=== PATIENT | male | born 1960 | race African-American/Black ===

== ENCOUNTER 2019-01-04 13:20 | Inpatient (IN) ==
[2019-01-04 15:24] LABS: Basophils # 0.1 10*3/uL (0.0-0.2); Basophils % 0.6 % (0.0-0.8); Hemoglobin 12.8 GM/DL (14.0-18.0); Immature Granulocytes % 0.6 %; Immature Granulocytes Absolute 0.06 #; Lymphocytes # 1.8 10*3/uL (1.4-4.0); Lymphocytes % 18.4 % (21.2-54.2); Mean Corpuscular HGB Conc 31.2 GM/DL (32-36); Mean Platelet Volume 10.7 FL (9.6-12.0); Monocytes % 8.2 % (1.7-12.7); Neutrophils % 62.2 % (38.7-73.9); Platelet Count 200 T/CUMM (130-400); Red Cell Distribution Width 12.2 % (9.3-17.3); White Blood Count 9.5 T/CUMM (4-12)
[2019-01-04] MEDS ORDERED: DEXTROSE 10% 250 ML BAG IV PRN (15:36)
[2019-01-04] MEDS ORDERED: GLUCAGON 1 MG VIAL IM PRN (15:36)
[2019-01-04] MEDS ORDERED: SODIUM CHLORIDE 0.9% 1,000 ML IV PRN (15:38)
[2019-01-04 15:43] LABS: Alanine Aminotransferase 62 U/L (16-61); Albumin 3.2 G/DL (3.4-5.0); Alkaline Phosphatase 99 U/L (45-117); Aspartate Amino Transferase 29 U/L (0-37); Bilirubin,Total < 0.39 MG/DL (0.2-1.0); Blood Urea Nitrogen 17 MG/DL (7-18); Glucose 173 MG/DL (74-106); Osmolality,Calculated 282.5 MOS/KG (273-304); Total Protein 7.2 G/DL (6.4-8.3)
[2019-01-04 16:42] LABS: Barbiturates Screen,Urine Negative (Negative); Benzodiazepines Screen,Urine Negative (Negative); Cannabinoid Screen,Urine Negative (Negative); Opiate Screen,Urine Negative (Negative); Phencyclidine Screen,Urine Negative (Negative)
[2019-01-04] MEDS: INSULIN REGULAR 100 UNIT/ML SUBCUT SCH (23:37)
[2019-01-05 06:32] LABS: Basophils # 0.1 10*3/uL (0.0-0.2); Basophils % 0.5 % (0.0-0.8); Eosinophils # 1.1 10*3/uL (0.0-0.87); Eosinophils % 10.6 % (0.00-10.9); Hematocrit 39.7 VOL% (42.0-52.0); Immature Granulocytes % 0.5 %; Immature Granulocytes Absolute 0.05 #; Lymphocytes # 2.4 10*3/uL (1.4-4.0); Lymphocytes % 23.5 % (21.2-54.2); Mean Corpuscular HGB Conc 32.7 GM/DL (32-36); Mean Corpuscular Volume 97.5 FL (87-102); Mean Platelet Volume 11.3 FL (9.6-12.0); Monocytes % 8.1 % (1.7-12.7); Neutrophils % 56.8 % (38.7-73.9); Platelet Count 210 T/CUMM (130-400); Red Blood Count 4.07 MC/CUMM (3.8-5.5); Red Cell Distribution Width 12.2 % (9.3-17.3); White Blood Count 10.1 T/CUMM (4-12)
[2019-01-05] MEDS: ENOXAPARIN 40 MG/0.4 ML SYRINGE SUBCUT SCH (10:09)
[2019-01-05] MEDS: INSULIN REGULAR 100 UNIT/ML SUBCUT SCH ×4 (10:10→22:20)
[2019-01-05] MEDS: MONTELUKAST 10 MG TABLET PO SCH (21:35)
[2019-01-06] MEDS ORDERED: ONDANSETRON 4 MG/2 ML VIAL IV PRN (07:40)
[2019-01-06] MEDS: LISINOPRIL 5 MG TABLET PO SCH (08:56)
[2019-01-06] MEDS: ASPIRIN CHEW 81 MG TABLET PO SCH (08:56)
[2019-01-06] MEDS: TAMSULOSIN 0.4 MG CAPSULE PO SCH (08:57)
[2019-01-06] MEDS: LORATADINE 10 MG TABLET PO SCH (08:57)
[2019-01-06] MEDS: INSULIN REGULAR 100 UNIT/ML SUBCUT SCH ×4 (08:58→21:02)
[2019-01-06] MEDS: ENOXAPARIN 40 MG/0.4 ML SYRINGE SUBCUT SCH (08:58)
[2019-01-06] MEDS ORDERED: cloNIDine 0.3 MG/24 HR PATCH TRANSDERM SCH (09:30)
[2019-01-06] MEDS: fentaNYL 12 MCG/HR PATCH TRANSDERM SCH (10:17)
[2019-01-06] MEDS ORDERED: DEXTROSE 50% 25 GM/50 ML VIAL IV PRN (15:23)
[2019-01-06] MEDS: PANTOPRAZOLE 40 MG TABLET PO SCH (21:01)
[2019-01-06] MEDS: MONTELUKAST 10 MG TABLET PO SCH (21:01)
[2019-01-06] MEDS: INSULIN GLARGINE 100 UNIT/ML SUBCUT SCH (21:02)
[2019-01-07] MEDS: TAMSULOSIN 0.4 MG CAPSULE PO SCH (08:19)
[2019-01-07] MEDS: PANTOPRAZOLE 40 MG TABLET PO SCH (08:19)
[2019-01-07] MEDS: LORATADINE 10 MG TABLET PO SCH (08:19)
[2019-01-07] MEDS: ASPIRIN CHEW 81 MG TABLET PO SCH (08:20)
[2019-01-07] MEDS: LISINOPRIL 5 MG TABLET PO SCH (08:20)
[2019-01-07] MEDS: ENOXAPARIN 40 MG/0.4 ML SYRINGE SUBCUT SCH (08:22)
[2019-01-07] MEDS ORDERED: PROMETHAZINE 25 MG TABLET PO PRN (09:12)
[2019-01-07] MEDS: INSULIN REGULAR 100 UNIT/ML SUBCUT SCH ×4 (11:11→21:19)
[2019-01-07] MEDS: GABAPENTIN 300 MG CAPSULE PO SCH ×3 (11:29→21:19)
[2019-01-07] MEDS ORDERED: ALBUTEROL 2.5 MG/3 ML NEB RESP TX PRN (13:00)
[2019-01-07] MEDS: predniSONE 20 MG TABLET PO SCH ×2 (16:44→21:19)
[2019-01-07] MEDS: INSULIN GLARGINE 100 UNIT/ML SUBCUT SCH (21:19)
[2019-01-07] MEDS: MONTELUKAST 10 MG TABLET PO SCH (21:20)
[2019-01-08] MEDS: GABAPENTIN 300 MG CAPSULE PO SCH ×4 (02:38→22:20)
[2019-01-08 05:18] LABS: Basophils % 0.3 % (0.0-0.8); Eosinophils % 0.2 % (0.00-10.9); Hemoglobin 13.5 GM/DL (14.0-18.0); Immature Granulocytes % 0.6 %; Immature Granulocytes Absolute 0.06 #; Lymphocytes # 0.8 10*3/uL (1.4-4.0); Lymphocytes % 8.5 % (21.2-54.2); Mean Corpuscular HGB Conc 32.1 GM/DL (32-36); Mean Platelet Volume 10.8 FL (9.6-12.0); Monocytes % 3.2 % (1.7-12.7); Neutrophils % 87.2 % (38.7-73.9); Platelet Count 213 T/CUMM (130-400); Red Blood Count 4.33 MC/CUMM (3.8-5.5); Red Cell Distribution Width 11.5 % (9.3-17.3); White Blood Count 9.9 T/CUMM (4-12)
[2019-01-08 05:41] LABS: Calcium 8.7 MG/DL (8.5-10.1); Osmolality,Calculated 288.2 MOS/KG (273-304)
[2019-01-08] MEDS: INSULIN REGULAR 100 UNIT/ML SUBCUT SCH ×4 (09:11→22:19)
[2019-01-08] MEDS: LISINOPRIL 5 MG TABLET PO SCH (09:11)
[2019-01-08] MEDS: MELOXICAM 7.5 MG TABLET PO SCH (09:12)
[2019-01-08] MEDS: ASPIRIN CHEW 81 MG TABLET PO SCH (09:13)
[2019-01-08] MEDS: ENOXAPARIN 40 MG/0.4 ML SYRINGE SUBCUT SCH (09:14)
[2019-01-08] MEDS: TAMSULOSIN 0.4 MG CAPSULE PO SCH (09:14)
[2019-01-08] MEDS: predniSONE 20 MG TABLET PO SCH ×3 (09:14→22:20)
[2019-01-08] MEDS: PANTOPRAZOLE 40 MG TABLET PO SCH (09:14)
[2019-01-08] MEDS: LORATADINE 10 MG TABLET PO SCH (09:15)
[2019-01-08] MEDS: MOMETASONE 50 MCG NASAL SPRAY 17 GM BOTTLE BOTH NARES SCH (09:17)
[2019-01-08] MEDS ORDERED: FUROSEMIDE 40 MG/4 ML VIAL IV ONE (10:58)
[2019-01-08] MEDS ORDERED: INSULIN GLARGINE 100 UNIT/ML SUBCUT SCH (13:41)
[2019-01-08] MEDS: MONTELUKAST 10 MG TABLET PO SCH (22:20)
[2019-01-09] MEDS: GABAPENTIN 300 MG CAPSULE PO SCH ×4 (03:35→21:40)
[2019-01-09 05:29] LABS: Basophils % 0.2 % (0.0-0.8); Hematocrit 38.1 VOL% (42.0-52.0); Hemoglobin 12.2 GM/DL (14.0-18.0); Immature Granulocytes % 0.9 %; Immature Granulocytes Absolute 0.18 #; Lymphocytes % 5.2 % (21.2-54.2); Mean Corpuscular Volume 96.7 FL (87-102); Mean Platelet Volume 11.3 FL (9.6-12.0); Monocytes % 2.2 % (1.7-12.7); Neutrophils % 91.5 % (38.7-73.9); Platelet Count 222 T/CUMM (130-400); Red Blood Count 3.94 MC/CUMM (3.8-5.5); Red Cell Distribution Width 11.7 % (9.3-17.3)
[2019-01-09 05:59] LABS: Calcium 8.7 MG/DL (8.5-10.1); Osmolality,Calculated 296.4 MOS/KG (273-304)
[2019-01-09 06:40] LABS: Lymphocytes 7 % (20-55); Platelet Estimate Normal; Polychromasia Slight; Segmented Neutrophils 91 % (50-85); Total Cells Counted 100
[2019-01-09] MEDS ORDERED: CALCIUM GLUCONATE 1,000 MG in SODIUM CHLORIDE 0.9% 100 ML IV ONE (08:56)
[2019-01-09] MEDS ORDERED: INSULIN REGULAR 100 UNIT/ML IV ONE ×2 (08:56→13:52)
[2019-01-09] MEDS ORDERED: SODIUM BICARBONATE 50 MEQ/50 ML VIAL IV ONE (09:01)
[2019-01-09] MEDS: fentaNYL 12 MCG/HR PATCH TRANSDERM SCH (09:47)
[2019-01-09] MEDS: TAMSULOSIN 0.4 MG CAPSULE PO SCH (09:48)
[2019-01-09] MEDS: MELOXICAM 7.5 MG TABLET PO SCH (09:48)
[2019-01-09] MEDS: LORATADINE 10 MG TABLET PO SCH (09:48)
[2019-01-09] MEDS: predniSONE 20 MG TABLET PO SCH (09:48)
[2019-01-09] MEDS: LISINOPRIL 5 MG TABLET PO SCH (09:48)
[2019-01-09] MEDS: MOMETASONE 50 MCG NASAL SPRAY 17 GM BOTTLE BOTH NARES SCH (09:49)
[2019-01-09] MEDS: PANTOPRAZOLE 40 MG TABLET PO SCH (09:49)
[2019-01-09] MEDS: ASPIRIN CHEW 81 MG TABLET PO SCH (09:49)
[2019-01-09] MEDS: INSULIN REGULAR 100 UNIT/ML SUBCUT SCH ×4 (09:59→21:41)
[2019-01-09] MEDS: ENOXAPARIN 40 MG/0.4 ML SYRINGE SUBCUT SCH (10:00)
[2019-01-09 10:13] LABS: Apearance,Urine CLEAR (Clear); Bilirubin,Urine Negative (Negative); Blood, Urine Negative (Negative); Glucose,Urine (UA) >=500 mg/dL (Negative); Ketones,Urine Negative (Negative); Nitrite,Urine Negative (Negative); Protein,Urine Negative; Squamous Epithelial Cell,Urine Occasional /HPF (0-10); Urine Color Straw (Yellow); Urine Urobilinogen < 2.0 EU/DL (0.2-1.0); WBC,Urine <1 /HPF (0-6)
[2019-01-09 10:44] LABS: Barbiturates Screen,Urine Negative (Negative); Benzodiazepines Screen,Urine Negative (Negative); Cannabinoid Screen,Urine Negative (Negative); Opiate Screen,Urine Negative (Negative); Phencyclidine Screen,Urine Negative (Negative)
[2019-01-09] MEDS ORDERED: SODIUM POLYSTYRENE SULFATE 15 GM/60 ML BOTTLE PO STA (10:46)
[2019-01-09 14:37] LABS: Calcium 8.5 MG/DL (8.5-10.1)
[2019-01-09 14:40] LABS: Osmolality,Calculated 300.5 MOS/KG (273-304)
[2019-01-09] MEDS ORDERED: SODIUM CHLORIDE 0.9% 1,000 ML IV SCH (15:00)
[2019-01-09] MEDS ORDERED: INSULIN LISPRO 100 UNIT/ML SUBCUT SCH (17:00)
[2019-01-09] MEDS: INSULIN GLARGINE 100 UNIT/ML SUBCUT SCH (21:40)
[2019-01-09] MEDS: MONTELUKAST 10 MG TABLET PO SCH (21:40)
[2019-01-10] MEDS: INSULIN REGULAR 100 UNIT/ML SUBCUT SCH ×5 (00:22→22:07)
[2019-01-10] MEDS: GABAPENTIN 300 MG CAPSULE PO SCH ×4 (03:34→22:08)
[2019-01-10 05:01] LABS: Basophils # 0.1 10*3/uL (0.0-0.2); Basophils % 0.3 % (0.0-0.8); Eosinophils # 0.1 10*3/uL (0.0-0.87); Eosinophils % 0.6 % (0.00-10.9); Hematocrit 37.2 VOL% (42.0-52.0); Hemoglobin 12.3 GM/DL (14.0-18.0); Immature Granulocytes % 0.9 %; Lymphocytes # 2.5 10*3/uL (1.4-4.0); Lymphocytes % 11.1 % (21.2-54.2); Mean Corpuscular HGB Conc 33.1 GM/DL (32-36); Mean Corpuscular Volume 95.9 FL (87-102); Mean Platelet Volume 11.6 FL (9.6-12.0); Neutrophils % 79.1 % (38.7-73.9); Platelet Count 218 T/CUMM (130-400); Red Blood Count 3.88 MC/CUMM (3.8-5.5); Red Cell Distribution Width 11.9 % (9.3-17.3); White Blood Count 22.6 T/CUMM (4-12)
[2019-01-10 05:22] LABS: Band Neutrophils 1 % (0-10); Eosinophils 1 % (0-10); Hypochromasia 1+; Lymphocytes 6 % (20-55); Platelet Estimate Adequate; Segmented Neutrophils 84 % (50-85); Total Cells Counted 100
[2019-01-10 05:33] LABS: Calcium 8.3 MG/DL (8.5-10.1); Osmolality,Calculated 295.7 MOS/KG (273-304)
[2019-01-10 05:57] LABS: Barbiturates Screen,Urine Negative (Negative); Benzodiazepines Screen,Urine Negative (Negative); Cannabinoid Screen,Urine Negative (Negative); Opiate Screen,Urine Negative (Negative); Phencyclidine Screen,Urine Negative (Negative)
[2019-01-10] MEDS: TAMSULOSIN 0.4 MG CAPSULE PO SCH (10:00)
[2019-01-10] MEDS: LORATADINE 10 MG TABLET PO SCH (10:00)
[2019-01-10] MEDS: MOMETASONE 50 MCG NASAL SPRAY 17 GM BOTTLE BOTH NARES SCH (10:00)
[2019-01-10] MEDS: MELOXICAM 7.5 MG TABLET PO SCH (10:00)
[2019-01-10] MEDS: PANTOPRAZOLE 40 MG TABLET PO SCH (10:00)
[2019-01-10] MEDS: ASPIRIN CHEW 81 MG TABLET PO SCH (10:00)
[2019-01-10] MEDS: ENOXAPARIN 40 MG/0.4 ML SYRINGE SUBCUT SCH (10:05)
[2019-01-10] MEDS ORDERED: SODIUM CHLORIDE 0.9% 1,000 ML IV SCH (15:00)
[2019-01-10] MEDS: CHLORHEXIDINE 4% SOLN 118 ML BOTTLE TOP SCH ×4 (16:41→22:36)
[2019-01-10] MEDS: LEVOFLOXACIN 750 MG TABLET PO SCH (16:41)
[2019-01-10] MEDS: INSULIN GLARGINE 100 UNIT/ML SUBCUT SCH (22:06)
[2019-01-10] MEDS: MONTELUKAST 10 MG TABLET PO SCH (22:08)
[2019-01-10] MEDS: CHLORHEXIDINE 0.12% ORAL RINSE 60 ML BOTTLE SWISH/SPIT SCH ×2 (22:09→22:39)
[2019-01-11] MEDS: GABAPENTIN 300 MG CAPSULE PO SCH ×2 (04:21→10:56)
[2019-01-11] MEDS ORDERED: PAPAVERINE 60 MG/2 ML VIAL ONE (04:23)
[2019-01-11] MEDS ORDERED: TISSUE ADHESIVE 1 EACH APPLICATOR TOP ONE (04:23)
[2019-01-11] MEDS ORDERED: VANCOMYCIN 1,000 MG VIAL ONE (04:24)
[2019-01-11] MEDS ORDERED: DIAZEPAM 5 MG TABLET PO ONE (06:00)
[2019-01-11] MEDS ORDERED: FAMOTIDINE 20 MG TABLET PO ONE (06:00)
[2019-01-11] MEDS ORDERED: MIDAZOLAM 10 MG/2 ML VIAL ONE (06:25)
[2019-01-11] MEDS ORDERED: SUFentanil 250 MCG/5 ML AMP ONE (06:25)
[2019-01-11] MEDS ORDERED: CEFUROXIME INJ 1,500 MG in SYRINGE 1 EACH IV ONE (06:30)
[2019-01-11 07:37] LABS: ABG HCO3 26.3 MMOL/L (20-26); ABG Oxygen Saturation 99.2 % (95-100); ABG PCO2 44.7 MM HG (35-48); ABG PH 7.387 (7.35-7.45); ABG PO2 446.6 MM HG (80-95); ABG TCO2 27.6 MMOL/L (23-27); Glucose Heart Surgery 104 MG/DL (74-106); Hemoglobin Heart Surgery 11.2 G/DL (14.0-18.0); PCO2 Patient Temp Arterial 44.7 MMHG; PH Patient Temp Arterial 7.387; PO2 Patient Temp Arterial 446.6 MM HG; Patient Temperature 37 CELCIUS; Sodium Heart/CVR 137 MMOL/L (135-145)
[2019-01-11 08:58] LABS: Hematocrit Heart Surgery 24.7 PERCENT (42-52); Hemoglobin Heart Surgery 7.9 G/DL (14.0-18.0); PCO2 Patient Temp Venous 40.5 MM HG; PH Patient Temp Venous 7.433; PO2 Patient Temp Venous 36.8 MM HG; Potassium Heart/CVR 5.2 MMOL/L (3.5-5.1); VBG Base Excess 2.8 MEQ/L (0-4); VBG HCO3 26.7 MEQ/L (24-28); VBG Oxygen Saturation 78.3 %; VBG PCO2 44.6 MMHG (41-51); VBG PH 7.403; VBG PO2 42.2 MMHG (17-40)
[2019-01-11 09:28] LABS: Apearance,Urine CLEAR (Clear); Bacteria,Urine Occasional /HPF (Few); Bilirubin,Urine Negative (Negative); Blood, Urine Negative (Negative); Glucose,Urine (UA) Negative (Negative); Ketones,Urine Negative (Negative); Mucus,Urine Occasional /LPF (Occasional); Nitrite,Urine Negative (Negative); Protein,Urine Negative; RBC,Urine 1 /HPF (0-4); Squamous Epithelial Cell,Urine Occasional /HPF (0-10); Urine Color Yellow (Yellow); Urine Specific Gravity 1.017 (1.001-1.035); Urine Urobilinogen < 2.0 EU/DL (0.2-1.0); WBC,Urine 1 /HPF (0-6)
[2019-01-11] MEDS ORDERED: SODIUM BICARBONATE 50 MEQ/50 ML VIAL IV ONE (09:32)
[2019-01-11] MEDS ORDERED: PROTAMINE SULFATE 250 MG/25 ML VIAL IV ONE (09:32)
[2019-01-11] MEDS ORDERED: HEPARIN 10,000 UNIT/10 ML VIAL ONE (09:32)
[2019-01-11] MEDS ORDERED: FUROSEMIDE 20 MG/2 ML VIAL ONE (09:32)
[2019-01-11] MEDS ORDERED: DEXTROSE 5% KCL 20 MEQ 20 MEQ/1,000 ML BAG IV ONE (09:32)
[2019-01-11] MEDS ORDERED: methylPREDNISolone SOD SUC 1,000 MG/8 ML VIAL ONE (09:32)
[2019-01-11] MEDS ORDERED: ALBUMIN 25% 25 GM/100 ML VIAL IV ONE (09:32)
[2019-01-11] MEDS ORDERED: MAGNESIUM SULFATE 5 GM/10 ML VIAL IV ONE (09:32)
[2019-01-11] MEDS ORDERED: MANNITOL 100 GM/500 ML BAG IV ONE (09:32)
[2019-01-11] MEDS ORDERED: PROTAMINE SULFATE 50 MG/5 ML VIAL IV ONE (09:33)
[2019-01-11 09:44] LABS: ABG Base Excess 2.2 MMOL/L (-2.5-2.5); ABG HCO3 26.4 MMOL/L (20-26); ABG PCO2 39.9 MM HG (35-48); ABG PH 7.432 (7.35-7.45); ABG TCO2 24.5 MMOL/L (23-27); Glucose Heart Surgery 195 MG/DL (74-106); Hematocrit Heart Surgery 27.6 PERCENT (42-52); Hemoglobin Heart Surgery 8.9 G/DL (14.0-18.0); Ionized Calcium Arterial 1.24 MMOL/L (1.21-1.46); PCO2 Patient Temp Arterial 39.9 MMHG; PH Patient Temp Arterial 7.432; Patient Temperature 37 CELCIUS; Potassium Heart/CVR 4.6 MMOL/L (3.5-5.1); Sodium Heart/CVR 132 MMOL/L (135-145)
[2019-01-11] MEDS ORDERED: CEFUROXIME INJ 1,500 MG in SODIUM CHLORIDE 0.9% 100 ML IV ONE (09:56)
[2019-01-11] MEDS ORDERED: PHENYLEPHRINE DRIP 0 MG/0 ML PREMIX IV ONE (10:18)
[2019-01-11] MEDS ORDERED: ALBUMIN 5% 12.5 GM/250 ML VIAL IV ONE (10:18)
[2019-01-11] MEDS: SODIUM CHLORIDE 0.45% 1,000 ML IV SCH ×2 (10:20)
[2019-01-11] MEDS ORDERED: THROMBIN TOPICAL (RECOMBINANT) 5,000 UNIT VIAL TOP ONE (10:25)
[2019-01-11] MEDS ORDERED: VECURONIUM 10 MG VIAL IV ONE (10:45)
[2019-01-11] MEDS ORDERED: PHENYLEPHRINE DRIP 20 MG/250 ML PREMIX IV ONE (10:45)
[2019-01-11] MEDS ORDERED: HEPARIN/NACL 0.9% 2 UNITS/ML 500 ML IV ONE (10:45)
[2019-01-11] MEDS ORDERED: MINERAL OIL/PETROLATUM OPH OINT 3.5 GM TUBE ONE (10:45)
[2019-01-11] MEDS ORDERED: CALCIUM CHLORIDE 1,000 MG/10 ML VIAL IV ONE (10:45)
[2019-01-11] MEDS ORDERED: SEVOFLURANE 1 UNIT/15 MINUTE INH ONE (10:45)
[2019-01-11] MEDS ORDERED: LACTATED RINGERS 1,000 ML IV ONE (10:46)
[2019-01-11] MEDS ORDERED: SODIUM CHLORIDE 0.9% 1,000 ML IV ONE (10:46)
[2019-01-11] MEDS ORDERED: NITROGLYCERIN DRIP 50 MG/250 ML BOTTLE IV ONE (10:46)
[2019-01-11] MEDS ORDERED: SODIUM CHLORIDE 0.9% 250 ML IV ONE (10:46)
[2019-01-11] MEDS ORDERED: AMINOCAPROIC ACID 5,000 MG/20 ML VIAL ONE (10:46)
[2019-01-11] MEDS ORDERED: SODIUM CHLORIDE 0.9% 100 ML IV ONE (10:46)
[2019-01-11] MEDS ORDERED: ETOMIDATE 40 MG/20 ML VIAL IV ONE (10:46)
[2019-01-11] MEDS ORDERED: SODIUM CHLORIDE 0.9% 250 ML IV PRN (10:51)
[2019-01-11] MEDS ORDERED: MAGNESIUM SULF RIDER 4 GM in PREMIX 1 EACH IV PRN (10:51)
[2019-01-11] MEDS ORDERED: INSULIN REGULAR 100 UNIT/ML IV PRN (10:51)
[2019-01-11] MEDS ORDERED: MIDAZOLAM 2 MG/2 ML VIAL IV PRN (10:51)
[2019-01-11] MEDS ORDERED: CHLORHEXIDINE 4% SOLN 118 ML BOTTLE TOP PRN (10:51)
[2019-01-11] MEDS ORDERED: CALCIUM CHLORIDE 1,000 MG/10 ML SYRINGE IV PRN (10:51)
[2019-01-11] MEDS ORDERED: POTASSIUM CHLORIDE RIDER 20 MEQ in PREMIX 1 EACH IV PRN (10:51)
[2019-01-11] MEDS ORDERED: POTASSIUM CHLORIDE RIDER 10 MEQ in PREMIX 1 EACH IV PRN (10:51)
[2019-01-11] MEDS ORDERED: ONDANSETRON 4 MG/2 ML VIAL IV PRN (10:51)
[2019-01-11] MEDS ORDERED: DEXTROSE 50% 25 GM/50 ML VIAL IV PRN ×2 (10:51)
[2019-01-11] MEDS ORDERED: ACETAMINOPHEN 650 MG SUPP RECTAL PRN (10:51)
[2019-01-11] MEDS ORDERED: MAGNESIUM SULF RIDER 2 GM in PREMIX 1 EACH IV PRN (10:51)
[2019-01-11] MEDS: CHLORHEXIDINE 0.12% ORAL RINSE 60 ML BOTTLE SWISH/SPIT SCH ×3 (10:56→22:11)
[2019-01-11] MEDS: PANTOPRAZOLE 40 MG TABLET PO SCH (10:56)
[2019-01-11] MEDS: MELOXICAM 7.5 MG TABLET PO SCH (10:57)
[2019-01-11] MEDS: LEVOFLOXACIN 750 MG TABLET PO SCH (10:57)
[2019-01-11] MEDS: MOMETASONE 50 MCG NASAL SPRAY 17 GM BOTTLE BOTH NARES SCH (10:57)
[2019-01-11] MEDS: ENOXAPARIN 40 MG/0.4 ML SYRINGE SUBCUT SCH (10:57)
[2019-01-11] MEDS: ASPIRIN CHEW 81 MG TABLET PO SCH (10:58)
[2019-01-11] MEDS: SODIUM CHLORIDE 0.9% 1,000 ML IV SCH (10:58)
[2019-01-11] MEDS: INSULIN REGULAR 100 UNIT/ML SUBCUT SCH (10:58)
[2019-01-11] MEDS: TAMSULOSIN 0.4 MG CAPSULE PO SCH (10:58)
[2019-01-11] MEDS: LORATADINE 10 MG TABLET PO SCH (10:58)
[2019-01-11] MEDS: CHLORHEXIDINE 4% SOLN 118 ML BOTTLE TOP SCH ×2 (10:59)
[2019-01-11] MEDS ORDERED: INSULIN REGULAR DRIP 100 ML IV PRN (11:03)
[2019-01-11 11:21] LABS: ABG Base Excess 1.5 MMOL/L (-2.5-2.5); ABG HCO3 25.8 MMOL/L (20-26); ABG Oxygen Saturation 96.3 % (95-100); ABG PCO2 37.3 MM HG (35-48); ABG PH 7.442 (7.35-7.45); ABG PO2 77.6 MM HG (80-95); Glucose Heart Surgery 201 MG/DL (74-106); Hematocrit Heart Surgery 32.3 PERCENT (42-52); Hemoglobin Heart Surgery 10.5 G/DL (14.0-18.0); Potassium Heart/CVR 4.7 MMOL/L (3.5-5.1)
[2019-01-11 11:32] LABS: PT Patient Result 11.3 SECS
[2019-01-11 11:36] LABS: Blood Urea Nitrogen 39 MG/DL (7-18); Calcium 8.6 MG/DL (8.5-10.1); Glucose 187 MG/DL (74-106); Osmolality,Calculated 288.7 MOS/KG (273-304)
[2019-01-11 11:54] LABS: Hemoglobin 10.2 GM/DL (14.0-18.0); Mean Corpuscular HGB Conc 32.9 GM/DL (32-36); Mean Platelet Volume 10.8 FL (9.6-12.0); Platelet Count 200 T/CUMM (130-400); Red Blood Count 3.23 MC/CUMM (3.8-5.5); Red Cell Distribution Width 11.9 % (9.3-17.3); White Blood Count 13.8 T/CUMM (4-12)
[2019-01-11 11:55] LABS: Basophils % 0.4 % (0.0-0.8); Lymphocytes % 13.6 % (21.2-54.2); Monocytes % 6.9 % (1.7-12.7); Neutrophils % 76.1 % (38.7-73.9)
[2019-01-11] MEDS: SODIUM CHLORIDE 0.9% 1,000 ML IV PRN ×2 (12:00→16:27)
[2019-01-11 12:27] LABS: Partial Thromboplastin Time 85.4 SECS (0-40)
[2019-01-11] MEDS: ALBUMIN 5% 12.5 GM in PREMIX 1 EACH IV PRN ×2 (14:38→15:47)
[2019-01-11] MEDS ORDERED: PHENYLEPHRINE DRIP 40 MG/250 ML PREMIX IV PRN (18:15)
[2019-01-11] MEDS ORDERED: PHENYLEPHRINE DRIP 40 MG/250 ML PREMIX IV ONE (18:24)
[2019-01-11] MEDS: CEFUROXIME INJ 1,500 MG in SYRINGE 1 EACH IV SCH (18:45)
[2019-01-11 19:49] LABS: ABG Base Excess -1.6 MMOL/L (-2.5-2.5); ABG HCO3 23.1 MMOL/L (20-26); ABG Oxygen Saturation 98.7 % (95-100); ABG PCO2 44.1 MM HG (35-48); ABG PH 7.346 (7.35-7.45); ABG TCO2 22.2 MMOL/L (23-27); Glucose Heart Surgery 166 MG/DL (74-106); Hematocrit Heart Surgery 28.9 PERCENT (42-52); Hemoglobin Heart Surgery 9.3 G/DL (14.0-18.0); Potassium Heart/CVR 4.3 MMOL/L (3.5-5.1)
[2019-01-12] MEDS: MORPHINE 4 MG/1 ML VIAL IV PRN ×4 (00:06→19:36)
[2019-01-12] MEDS: SODIUM CHLORIDE 0.45% 1,000 ML IV SCH ×3 (00:10→10:01)
[2019-01-12] MEDS: MORPHINE 10 MG/1 ML VIAL IV PRN (01:40)
[2019-01-12 04:09] LABS: Basophils % 0.2 % (0.0-0.8); Hematocrit 28.5 VOL% (42.0-52.0); Hemoglobin 9.2 GM/DL (14.0-18.0); Immature Granulocytes % 0.9 %; Immature Granulocytes Absolute 0.19 #; Lymphocytes # 0.9 10*3/uL (1.4-4.0); Lymphocytes % 4.4 % (21.2-54.2); Mean Corpuscular HGB Conc 32.3 GM/DL (32-36); Mean Corpuscular Volume 96.3 FL (87-102); Mean Platelet Volume 10.9 FL (9.6-12.0); Monocytes % 3.9 % (1.7-12.7); Neutrophils % 90.6 % (38.7-73.9); Platelet Count 190 T/CUMM (130-400); Red Blood Count 2.96 MC/CUMM (3.8-5.5); White Blood Count 21.1 T/CUMM (4-12)
[2019-01-12 04:23] LABS: Osmolality,Calculated 289.4 MOS/KG (273-304)
[2019-01-12 04:32] LABS: Band Neutrophils 3 % (0-10); Lymphocytes 7 % (20-55); Platelet Estimate Adequate; Segmented Neutrophils 87 % (50-85); Total Cells Counted 100
[2019-01-12 05:06] LABS: ABG Base Excess -2.9 MMOL/L (-2.5-2.5); ABG HCO3 21.4 MMOL/L (20-26); ABG Oxygen Saturation 97.8 % (95-100); ABG PCO2 35.5 MM HG (35-48); ABG PH 7.399 (7.35-7.45); ABG PO2 123.4 MM HG (80-95); ABG TCO2 22.5 MMOL/L (23-27); Glucose Heart Surgery 129 MG/DL (74-106); Hemoglobin Heart Surgery 10.2 G/DL (14.0-18.0)
[2019-01-12] MEDS: CEFUROXIME INJ 1,500 MG in SYRINGE 1 EACH IV SCH ×2 (07:00→22:16)
[2019-01-12] MEDS: INSULIN REGULAR 100 UNIT/ML SUBCUT SCH ×4 (08:06→22:22)
[2019-01-12] MEDS: ASPIRIN EC 325 MG TABLET PO SCH (08:22)
[2019-01-12] MEDS: FUROSEMIDE 40 MG TABLET PO SCH (08:22)
[2019-01-12] MEDS: CHLORHEXIDINE 0.12% ORAL RINSE 60 ML BOTTLE SWISH/SPIT SCH ×2 (08:23→22:22)
[2019-01-12] MEDS: PANTOPRAZOLE 40 MG VIAL IV SCH (08:23)
[2019-01-12] MEDS ORDERED: FUROSEMIDE 40 MG/4 ML VIAL IV ONE (09:55)
[2019-01-12] MEDS: CLOPIDOGREL 75 MG TABLET PO SCH (10:53)
[2019-01-12] MEDS: CARVEDILOL 3.125 MG TABLET PO SCH ×2 (10:53→22:14)
[2019-01-12] MEDS ORDERED: diphenhydrAMINE CAP 50 MG CAPSULE PO PRN (21:45)
[2019-01-12] MEDS: ATORVASTATIN 40 MG TABLET PO SCH (22:13)
[2019-01-12] MEDS: INSULIN GLARGINE 100 UNIT/ML SUBCUT SCH (22:15)
[2019-01-13] MEDS: MORPHINE 10 MG/1 ML VIAL IV PRN (00:47)
[2019-01-13] MEDS: INSULIN REGULAR 100 UNIT/ML SUBCUT SCH ×5 (01:52→21:15)
[2019-01-13 06:22] LABS: Basophils % 0.1 % (0.0-0.8); Hematocrit 29.4 VOL% (42.0-52.0); Hemoglobin 9.6 GM/DL (14.0-18.0); Immature Granulocytes % 0.7 %; Immature Granulocytes Absolute 0.16 #; Lymphocytes # 1.3 10*3/uL (1.4-4.0); Lymphocytes % 5.4 % (21.2-54.2); Mean Corpuscular HGB Conc 32.7 GM/DL (32-36); Mean Corpuscular Volume 98.3 FL (87-102); Mean Platelet Volume 11.8 FL (9.6-12.0); Monocytes % 8.2 % (1.7-12.7); Neutrophils % 85.6 % (38.7-73.9); Platelet Count 202 T/CUMM (130-400); Red Blood Count 2.99 MC/CUMM (3.8-5.5); Red Cell Distribution Width 12.5 % (9.3-17.3); White Blood Count 23.7 T/CUMM (4-12)
[2019-01-13 06:38] LABS: Calcium 8.1 MG/DL (8.5-10.1); Osmolality,Calculated 289.8 MOS/KG (273-304)
[2019-01-13 06:44] LABS: Band Neutrophils 1 % (0-10); Hypochromasia 1+; Lymphocytes 6 % (20-55); Platelet Estimate Adequate; Segmented Neutrophils 83 % (50-85); Total Cells Counted 100
[2019-01-13] MEDS ORDERED: ALBUTEROL/IPRATROPIUM 3 ML NEB RESP TX PRN (07:23)
[2019-01-13] MEDS ORDERED: FUROSEMIDE 40 MG/4 ML VIAL IV ONE (07:34)
[2019-01-13] MEDS: MORPHINE 4 MG/1 ML VIAL IV PRN (07:55)
[2019-01-13] MEDS ORDERED: CLOPIDOGREL 75 MG TABLET PO SCH (09:00)
[2019-01-13] MEDS: CARVEDILOL 3.125 MG TABLET PO SCH ×2 (10:06→21:14)
[2019-01-13] MEDS: FUROSEMIDE 40 MG TABLET PO SCH (10:06)
[2019-01-13] MEDS: ASPIRIN EC 325 MG TABLET PO SCH (10:06)
[2019-01-13] MEDS: CLOPIDOGREL 75 MG TABLET PO SCH (10:06)
[2019-01-13] MEDS: CHLORHEXIDINE 0.12% ORAL RINSE 60 ML BOTTLE SWISH/SPIT SCH ×2 (10:06→21:20)
[2019-01-13] MEDS: PANTOPRAZOLE 40 MG VIAL IV SCH (10:07)
[2019-01-13] MEDS: ATORVASTATIN 40 MG TABLET PO SCH (21:14)
[2019-01-13] MEDS: INSULIN GLARGINE 100 UNIT/ML SUBCUT SCH (21:14)
[2019-01-14] MEDS: INSULIN REGULAR 100 UNIT/ML SUBCUT SCH ×6 (00:10→20:45)
[2019-01-14] MEDS: MORPHINE 10 MG/1 ML VIAL IV PRN (00:53)
[2019-01-14 04:47] LABS: Basophils % 0.1 % (0.0-0.8); Eosinophils % 0.1 % (0.00-10.9); Hematocrit 28.3 VOL% (42.0-52.0); Hemoglobin 9.3 GM/DL (14.0-18.0); Immature Granulocytes % 2.1 %; Immature Granulocytes Absolute 0.56 #; Lymphocytes # 1.7 10*3/uL (1.4-4.0); Lymphocytes % 6.6 % (21.2-54.2); Mean Corpuscular HGB Conc 32.9 GM/DL (32-36); Mean Corpuscular Volume 96.6 FL (87-102); Mean Platelet Volume 11.6 FL (9.6-12.0); Monocytes % 9.1 % (1.7-12.7); Platelet Count 208 T/CUMM (130-400); Red Blood Count 2.93 MC/CUMM (3.8-5.5); Red Cell Distribution Width 12.1 % (9.3-17.3); White Blood Count 26.5 T/CUMM (4-12)
[2019-01-14 04:58] LABS: Calcium 8.2 MG/DL (8.5-10.1); Osmolality,Calculated 286.8 MOS/KG (273-304)
[2019-01-14 05:21] LABS: Eosinophils 1 % (0-10); Hypochromasia 1+; Lymphocytes 8 % (20-55); Platelet Estimate Adequate; Segmented Neutrophils 84 % (50-85); Total Cells Counted 100
[2019-01-14] MEDS: MORPHINE 4 MG/1 ML VIAL IV PRN ×2 (06:40→19:36)
[2019-01-14] MEDS ORDERED: FUROSEMIDE 40 MG/4 ML VIAL IV ONE (09:47)
[2019-01-14] MEDS: PANTOPRAZOLE 40 MG VIAL IV SCH (09:47)
[2019-01-14] MEDS: CLOPIDOGREL 75 MG TABLET PO SCH (09:48)
[2019-01-14] MEDS: CARVEDILOL 3.125 MG TABLET PO SCH ×2 (09:48→20:45)
[2019-01-14] MEDS: CHLORHEXIDINE 0.12% ORAL RINSE 60 ML BOTTLE SWISH/SPIT SCH ×2 (09:48→20:44)
[2019-01-14] MEDS: ASPIRIN EC 325 MG TABLET PO SCH (09:48)
[2019-01-14] MEDS: FUROSEMIDE 40 MG TABLET PO SCH (09:48)
[2019-01-14] MEDS: MEROPENEM 500 MG in SODIUM CHLORIDE 0.9% 100 ML IV SCH ×2 (11:09→22:08)
[2019-01-14] MEDS: ALBUTEROL/IPRATROPIUM 3 ML NEB RESP TX SCH ×2 (14:15→19:18)
[2019-01-14] MEDS: oxyCODONE/ACETAMINOPHEN 5-325 MG TABLET PO PRN (15:12)
[2019-01-14] MEDS: ATORVASTATIN 40 MG TABLET PO SCH (20:44)
[2019-01-14] MEDS: INSULIN GLARGINE 100 UNIT/ML SUBCUT SCH (20:45)
[2019-01-14 21:45] LABS: Apearance,Urine CLEAR (Clear); Bacteria,Urine Occasional /HPF (Few); Bilirubin,Urine Negative (Negative); Blood, Urine Small mg/dL (Negative); Glucose,Urine (UA) >=500 mg/dL (Negative); Hyaline Casts,Urine 1 /LPF (0-3); Ketones,Urine Negative (Negative); Mucus,Urine Occasional /LPF (Occasional); Nitrite,Urine Negative (Negative); Protein,Urine Negative; RBC,Urine 4 /HPF (0-4); Urine Color Yellow (Yellow); Urine Specific Gravity 1.013 (1.001-1.035); Urine Urobilinogen < 2.0 EU/DL (0.2-1.0); WBC,Urine 1 /HPF (0-6)
[2019-01-15] MEDS: INSULIN REGULAR 100 UNIT/ML SUBCUT SCH ×6 (00:02→21:27)
[2019-01-15] MEDS: oxyCODONE/ACETAMINOPHEN 5-325 MG TABLET PO PRN ×4 (00:07→19:48)
[2019-01-15] MEDS: ALBUTEROL/IPRATROPIUM 3 ML NEB RESP TX SCH ×4 (01:52→19:45)
[2019-01-15 05:09] LABS: Basophils # 0.1 10*3/uL (0.0-0.2); Basophils % 0.2 % (0.0-0.8); Eosinophils # 0.3 10*3/uL (0.0-0.87); Eosinophils % 1.4 % (0.00-10.9); Hematocrit 27.4 VOL% (42.0-52.0); Immature Granulocytes % 3.2 %; Immature Granulocytes Absolute 0.67 #; Lymphocytes # 2.3 10*3/uL (1.4-4.0); Lymphocytes % 11.2 % (21.2-54.2); Mean Corpuscular HGB Conc 32.8 GM/DL (32-36); Mean Corpuscular Volume 97.5 FL (87-102); Mean Platelet Volume 11.3 FL (9.6-12.0); Monocytes % 8.4 % (1.7-12.7); Neutrophils % 75.6 % (38.7-73.9); Platelet Count 196 T/CUMM (130-400); Red Blood Count 2.81 MC/CUMM (3.8-5.5); White Blood Count 20.9 T/CUMM (4-12)
[2019-01-15 05:26] LABS: Calcium 7.8 MG/DL (8.5-10.1)
[2019-01-15 05:29] LABS: Eosinophils 2 % (0-10); Lymphocytes 15 % (20-55); Platelet Estimate Adequate; Polychromasia Slight; Segmented Neutrophils 77 % (50-85); Total Cells Counted 100
[2019-01-15] MEDS: PANTOPRAZOLE 40 MG VIAL IV SCH (09:40)
[2019-01-15] MEDS: CHLORHEXIDINE 0.12% ORAL RINSE 60 ML BOTTLE SWISH/SPIT SCH ×2 (09:41→21:27)
[2019-01-15] MEDS: CARVEDILOL 3.125 MG TABLET PO SCH ×2 (09:41→21:27)
[2019-01-15] MEDS: FUROSEMIDE 40 MG TABLET PO SCH (09:41)
[2019-01-15] MEDS: CLOPIDOGREL 75 MG TABLET PO SCH (09:41)
[2019-01-15] MEDS: ASPIRIN EC 325 MG TABLET PO SCH (09:41)
[2019-01-15] MEDS: MEROPENEM 500 MG in SODIUM CHLORIDE 0.9% 100 ML IV SCH ×2 (09:41→21:28)
[2019-01-15] MEDS: FUROSEMIDE 40 MG/4 ML VIAL IV SCH (13:25)
[2019-01-15] MEDS: INSULIN GLARGINE 100 UNIT/ML SUBCUT SCH (21:26)
[2019-01-15] MEDS: GABAPENTIN 300 MG CAPSULE PO SCH (21:27)
[2019-01-15] MEDS: ATORVASTATIN 40 MG TABLET PO SCH (21:27)
[2019-01-16] MEDS: INSULIN REGULAR 100 UNIT/ML SUBCUT SCH ×6 (00:10→20:39)
[2019-01-16] MEDS: ALBUTEROL/IPRATROPIUM 3 ML NEB RESP TX SCH ×4 (01:36→19:20)
[2019-01-16 04:35] LABS: Basophils % 0.2 % (0.0-0.8); Eosinophils # 0.5 10*3/uL (0.0-0.87); Eosinophils % 2.7 % (0.00-10.9); Hematocrit 24.9 VOL% (42.0-52.0); Hemoglobin 8.3 GM/DL (14.0-18.0); Immature Granulocytes % 2.1 %; Immature Granulocytes Absolute 0.37 #; Lymphocytes # 1.9 10*3/uL (1.4-4.0); Lymphocytes % 10.7 % (21.2-54.2); Mean Corpuscular HGB Conc 33.3 GM/DL (32-36); Mean Corpuscular Volume 96.5 FL (87-102); Mean Platelet Volume 11.2 FL (9.6-12.0); Monocytes % 9.9 % (1.7-12.7); Neutrophils % 74.4 % (38.7-73.9); Platelet Count 210 T/CUMM (130-400); Red Blood Count 2.58 MC/CUMM (3.8-5.5); Red Cell Distribution Width 12.1 % (9.3-17.3); White Blood Count 17.9 T/CUMM (4-12)
[2019-01-16 04:51] LABS: Calcium 7.9 MG/DL (8.5-10.1)
[2019-01-16] MEDS: oxyCODONE/ACETAMINOPHEN 5-325 MG TABLET PO PRN ×2 (05:46→16:10)
[2019-01-16] MEDS: CHLORHEXIDINE 0.12% ORAL RINSE 60 ML BOTTLE SWISH/SPIT SCH ×2 (09:18→21:50)
[2019-01-16] MEDS: FUROSEMIDE 40 MG/4 ML VIAL IV SCH ×2 (09:18→21:51)
[2019-01-16] MEDS: MEROPENEM 500 MG in SODIUM CHLORIDE 0.9% 100 ML IV SCH ×2 (09:19→22:36)
[2019-01-16] MEDS: CLOPIDOGREL 75 MG TABLET PO SCH (09:19)
[2019-01-16] MEDS: FUROSEMIDE 40 MG TABLET PO SCH (09:19)
[2019-01-16] MEDS: PANTOPRAZOLE 40 MG VIAL IV SCH (09:19)
[2019-01-16] MEDS: CARVEDILOL 3.125 MG TABLET PO SCH ×2 (09:19→20:38)
[2019-01-16] MEDS: ASPIRIN EC 325 MG TABLET PO SCH (09:19)
[2019-01-16] MEDS ORDERED: guaiFENesin 200 MG/10 ML UDCUP PO PRN (11:49)
[2019-01-16] MEDS ORDERED: MAGNESIUM HYDROXIDE SUSP 30 ML UDCUP PO PRN (11:49)
[2019-01-16] MEDS: ATORVASTATIN 40 MG TABLET PO SCH (20:37)
[2019-01-16] MEDS: INSULIN GLARGINE 100 UNIT/ML SUBCUT SCH (20:38)
[2019-01-16] MEDS: GABAPENTIN 300 MG CAPSULE PO SCH (20:38)
[2019-01-16] MEDS: MORPHINE 4 MG/1 ML VIAL IV PRN (21:50)
[2019-01-17] MEDS: ALBUTEROL/IPRATROPIUM 3 ML NEB RESP TX SCH ×4 (00:05→19:10)
[2019-01-17] MEDS: INSULIN REGULAR 100 UNIT/ML SUBCUT SCH ×7 (00:18→23:43)
[2019-01-17] MEDS: MORPHINE 4 MG/1 ML VIAL IV PRN ×2 (02:44→08:50)
[2019-01-17 05:09] LABS: Basophils # 0.1 10*3/uL (0.0-0.2); Basophils % 0.3 % (0.0-0.8); Eosinophils # 0.6 10*3/uL (0.0-0.87); Eosinophils % 2.9 % (0.00-10.9); Hemoglobin 8.4 GM/DL (14.0-18.0); Immature Granulocytes % 1.8 %; Immature Granulocytes Absolute 0.33 #; Lymphocytes # 2.3 10*3/uL (1.4-4.0); Mean Corpuscular HGB Conc 32.3 GM/DL (32-36); Mean Corpuscular Volume 96.3 FL (87-102); Mean Platelet Volume 11.3 FL (9.6-12.0); Platelet Count 236 T/CUMM (130-400); White Blood Count 18.9 T/CUMM (4-12)
[2019-01-17 05:37] LABS: Osmolality,Calculated 283.7 MOS/KG (273-304)
[2019-01-17] MEDS: CARVEDILOL 3.125 MG TABLET PO SCH ×2 (08:49→23:23)
[2019-01-17] MEDS: FUROSEMIDE 40 MG/4 ML VIAL IV SCH ×2 (08:49→23:23)
[2019-01-17] MEDS: PANTOPRAZOLE 40 MG VIAL IV SCH (08:49)
[2019-01-17] MEDS: ASPIRIN EC 325 MG TABLET PO SCH (08:49)
[2019-01-17] MEDS: CLOPIDOGREL 75 MG TABLET PO SCH (08:49)
[2019-01-17] MEDS: CHLORHEXIDINE 0.12% ORAL RINSE 60 ML BOTTLE SWISH/SPIT SCH ×2 (08:50→23:24)
[2019-01-17] MEDS: MEROPENEM 500 MG in SODIUM CHLORIDE 0.9% 100 ML IV SCH ×2 (11:06→23:23)
[2019-01-17] MEDS: GABAPENTIN 300 MG CAPSULE PO SCH (23:22)
[2019-01-17] MEDS: ATORVASTATIN 40 MG TABLET PO SCH (23:23)
[2019-01-17] MEDS: INSULIN GLARGINE 100 UNIT/ML SUBCUT SCH (23:43)
[2019-01-18] MEDS: ALBUTEROL/IPRATROPIUM 3 ML NEB RESP TX SCH ×4 (00:19→19:40)
[2019-01-18] MEDS: INSULIN REGULAR 100 UNIT/ML SUBCUT SCH ×5 (05:59→22:18)
[2019-01-18 06:13] LABS: Basophils # 0.1 10*3/uL (0.0-0.2); Basophils % 0.3 % (0.0-0.8); Eosinophils # 0.7 10*3/uL (0.0-0.87); Eosinophils % 3.3 % (0.00-10.9); Hematocrit 27.1 VOL% (42.0-52.0); Hemoglobin 8.9 GM/DL (14.0-18.0); Immature Granulocytes % 1.3 %; Immature Granulocytes Absolute 0.27 #; Lymphocytes # 2.5 10*3/uL (1.4-4.0); Lymphocytes % 11.9 % (21.2-54.2); Mean Corpuscular HGB Conc 32.8 GM/DL (32-36); Mean Corpuscular Volume 96.4 FL (87-102); Mean Platelet Volume 11.3 FL (9.6-12.0); Monocytes % 7.3 % (1.7-12.7); Neutrophils % 75.9 % (38.7-73.9); Platelet Count 262 T/CUMM (130-400); Red Blood Count 2.81 MC/CUMM (3.8-5.5); White Blood Count 20.7 T/CUMM (4-12)
[2019-01-18 06:40] LABS: Calcium 8.3 MG/DL (8.5-10.1); Osmolality,Calculated 281.8 MOS/KG (273-304)
[2019-01-18 07:10] LABS: Eosinophils 4 % (0-10); Hypochromasia 1+; Lymphocytes 10 % (20-55); Platelet Estimate Adequate; Segmented Neutrophils 83 % (50-85); Total Cells Counted 100
[2019-01-18] MEDS: CLOPIDOGREL 75 MG TABLET PO SCH (09:24)
[2019-01-18] MEDS: FUROSEMIDE 40 MG/4 ML VIAL IV SCH ×2 (09:24→21:30)
[2019-01-18] MEDS: CHLORHEXIDINE 0.12% ORAL RINSE 60 ML BOTTLE SWISH/SPIT SCH ×2 (09:24→22:18)
[2019-01-18] MEDS: PANTOPRAZOLE 40 MG VIAL IV SCH (09:24)
[2019-01-18] MEDS: CARVEDILOL 3.125 MG TABLET PO SCH ×2 (09:24→21:28)
[2019-01-18] MEDS: ASPIRIN EC 325 MG TABLET PO SCH (09:24)
[2019-01-18] MEDS ORDERED: methylPREDNISolone SOD SUC 40 MG/1 ML VIAL IV ONE (09:29)
[2019-01-18] MEDS ORDERED: MONTELUKAST 10 MG TABLET PO ONE (09:29)
[2019-01-18] MEDS: MEROPENEM 500 MG in SODIUM CHLORIDE 0.9% 100 ML IV SCH ×2 (10:05→21:29)
[2019-01-18] MEDS: ATORVASTATIN 40 MG TABLET PO SCH (21:28)
[2019-01-18] MEDS: GABAPENTIN 300 MG CAPSULE PO SCH (21:28)
[2019-01-18] MEDS: INSULIN GLARGINE 100 UNIT/ML SUBCUT SCH (22:18)
[2019-01-19] MEDS: ALBUTEROL/IPRATROPIUM 3 ML NEB RESP TX SCH ×4 (01:48→19:52)
[2019-01-19] MEDS: INSULIN REGULAR 100 UNIT/ML SUBCUT SCH ×6 (05:36→21:23)
[2019-01-19] MEDS: FUROSEMIDE 40 MG/4 ML VIAL IV SCH (08:48)
[2019-01-19] MEDS: ASPIRIN EC 325 MG TABLET PO SCH (08:49)
[2019-01-19] MEDS: PANTOPRAZOLE 40 MG VIAL IV SCH (08:49)
[2019-01-19] MEDS: CHLORHEXIDINE 0.12% ORAL RINSE 60 ML BOTTLE SWISH/SPIT SCH ×2 (08:49→21:30)
[2019-01-19] MEDS: CLOPIDOGREL 75 MG TABLET PO SCH (08:50)
[2019-01-19] MEDS: CARVEDILOL 3.125 MG TABLET PO SCH ×2 (08:50→21:22)
[2019-01-19] MEDS: MEROPENEM 500 MG in SODIUM CHLORIDE 0.9% 100 ML IV SCH (10:44)
[2019-01-19] MEDS: FUROSEMIDE 40 MG TABLET PO SCH (16:40)
[2019-01-19] MEDS: LEVOFLOXACIN 750 MG TABLET PO SCH (16:43)
[2019-01-19 16:44] LABS: ABG Base Excess 4.4 MMOL/L (-2.5-2.5); ABG HCO3 28.2 MMOL/L (20-26); ABG Oxygen Saturation 93.7 % (95-100); ABG PCO2 37.6 MM HG (35-48); ABG PH 7.479 (7.35-7.45); ABG PO2 70.4 MM HG (80-95); ABG TCO2 23.9 MMOL/L (23-27)
[2019-01-19] MEDS: oxyCODONE/ACETAMINOPHEN 5-325 MG TABLET PO PRN (21:22)
[2019-01-19] MEDS: GABAPENTIN 300 MG CAPSULE PO SCH (21:22)
[2019-01-19] MEDS: ATORVASTATIN 40 MG TABLET PO SCH (21:23)
[2019-01-19] MEDS: INSULIN GLARGINE 100 UNIT/ML SUBCUT SCH (21:24)
[2019-01-20] MEDS: ALBUTEROL/IPRATROPIUM 3 ML NEB RESP TX SCH ×4 (00:45→19:04)
[2019-01-20] MEDS: INSULIN REGULAR 100 UNIT/ML SUBCUT SCH ×6 (01:00→21:05)
[2019-01-20 05:16] LABS: Basophils # 0.1 10*3/uL (0.0-0.2); Basophils % 0.5 % (0.0-0.8); Eosinophils # 0.6 10*3/uL (0.0-0.87); Eosinophils % 2.8 % (0.00-10.9); Hematocrit 25.4 VOL% (42.0-52.0); Hemoglobin 8.2 GM/DL (14.0-18.0); Immature Granulocytes % 1.4 %; Immature Granulocytes Absolute 0.28 #; Lymphocytes # 2.6 10*3/uL (1.4-4.0); Lymphocytes % 12.6 % (21.2-54.2); Mean Corpuscular HGB Conc 32.3 GM/DL (32-36); Mean Corpuscular Volume 98.1 FL (87-102); Mean Platelet Volume 10.8 FL (9.6-12.0); Monocytes % 5.7 % (1.7-12.7); Platelet Count 280 T/CUMM (130-400); Red Blood Count 2.59 MC/CUMM (3.8-5.5); Red Cell Distribution Width 12.1 % (9.3-17.3); White Blood Count 20.4 T/CUMM (4-12)
[2019-01-20 05:27] LABS: Osmolality,Calculated 293.3 MOS/KG (273-304)
[2019-01-20 05:43] LABS: Lymphocytes 11 % (20-55); Platelet Estimate Decreased; Polychromasia Few; Segmented Neutrophils 88 % (50-85); Total Cells Counted 100
[2019-01-20] MEDS: FUROSEMIDE 40 MG TABLET PO SCH ×2 (08:38→16:25)
[2019-01-20] MEDS: ASPIRIN EC 325 MG TABLET PO SCH (08:39)
[2019-01-20] MEDS: CARVEDILOL 3.125 MG TABLET PO SCH ×2 (08:39→21:05)
[2019-01-20] MEDS: oxyCODONE/ACETAMINOPHEN 5-325 MG TABLET PO PRN (08:39)
[2019-01-20] MEDS: CLOPIDOGREL 75 MG TABLET PO SCH (08:39)
[2019-01-20] MEDS: CHLORHEXIDINE 0.12% ORAL RINSE 60 ML BOTTLE SWISH/SPIT SCH ×2 (08:40→21:05)
[2019-01-20] MEDS: PANTOPRAZOLE 40 MG VIAL IV SCH (08:40)
[2019-01-20] MEDS: LEVOFLOXACIN 750 MG TABLET PO SCH (16:25)
[2019-01-20] MEDS: GABAPENTIN 300 MG CAPSULE PO SCH (21:05)
[2019-01-20] MEDS: ATORVASTATIN 40 MG TABLET PO SCH (21:05)
[2019-01-20] MEDS: INSULIN GLARGINE 100 UNIT/ML SUBCUT SCH (21:06)
[2019-01-21] MEDS: INSULIN REGULAR 100 UNIT/ML SUBCUT SCH ×4 (00:31→12:53)
[2019-01-21] MEDS: ALBUTEROL/IPRATROPIUM 3 ML NEB RESP TX SCH ×3 (00:32→13:57)
[2019-01-21] MEDS ORDERED: BUDESONIDE/FORMOTEROL 160-4.5 INHALER 6 GM INH SCH (09:00)
[2019-01-21] MEDS: CARVEDILOL 3.125 MG TABLET PO SCH (10:06)
[2019-01-21] MEDS: ASPIRIN EC 325 MG TABLET PO SCH (10:07)
[2019-01-21] MEDS: FUROSEMIDE 40 MG TABLET PO SCH (10:07)
[2019-01-21] MEDS: CLOPIDOGREL 75 MG TABLET PO SCH (10:08)
[2019-01-21] MEDS: PANTOPRAZOLE 40 MG VIAL IV SCH (10:08)
[2019-01-21] MEDS: CHLORHEXIDINE 0.12% ORAL RINSE 60 ML BOTTLE SWISH/SPIT SCH (10:12)
[2019-01-21] MEDS: oxyCODONE/ACETAMINOPHEN 5-325 MG TABLET PO PRN (10:16)
[2019-01-21 12:33] VITALS: BP 101/54
== END 2019-01-21 15:51 | disposition home health service (06) | DRG 235 ==
LOC: N.TELES 14:26 → N.CVR 01-11 07:21 → N.TELES 01-12 12:15
PROVIDERS: ADMIT Thoracic Surgery (Cardiothoracic Vascular Surgery); ATTEND Thoracic Surgery (Cardiothoracic Vascular Surgery)

== ENCOUNTER 2019-01-21 17:37 | Inpatient (IN) ==
[2019-01-21] MEDS ORDERED: ALBUTEROL/IPRATROPIUM 3 ML NEB RESP TX STA ×2 (18:13→20:13)
[2019-01-21 19:00] LABS: Basophils # 0.1 10*3/uL (0.0-0.2); Basophils % 0.3 % (0.0-0.8); Eosinophils # 0.7 10*3/uL (0.0-0.87); Eosinophils % 3.9 % (0.00-10.9); Hematocrit 27.3 VOL% (42.0-52.0); Hemoglobin 8.8 GM/DL (14.0-18.0); Immature Granulocytes % 1.6 %; Immature Granulocytes Absolute 0.27 #; Lymphocytes # 1.9 10*3/uL (1.4-4.0); Lymphocytes % 10.8 % (21.2-54.2); Mean Corpuscular HGB Conc 32.2 GM/DL (32-36); Mean Corpuscular Volume 98.2 FL (87-102); Mean Platelet Volume 10.7 FL (9.6-12.0); Monocytes % 7.2 % (1.7-12.7); Neutrophils % 76.2 % (38.7-73.9); Platelet Count 331 T/CUMM (130-400); Red Blood Count 2.78 MC/CUMM (3.8-5.5); Red Cell Distribution Width 11.9 % (9.3-17.3); White Blood Count 17.3 T/CUMM (4-12)
[2019-01-21 19:11] LABS: Alanine Aminotransferase 50 U/L (16-61); Albumin 2.5 G/DL (3.4-5.0); Alkaline Phosphatase 126 U/L (45-117); Aspartate Amino Transferase 21 U/L (0-37); Bilirubin,Total < 0.39 MG/DL (0.2-1.0); Blood Urea Nitrogen 30 MG/DL (7-18); Calcium 8.3 MG/DL (8.5-10.1); Glucose 274 MG/DL (74-106); PT Patient Result 10.5 SECS (9.6-12.2); Partial Thromboplastin Time 27.2 SECS (20.8-36.0); Total Protein 7.4 G/DL (6.4-8.3); Troponin I < 0.015 NG/ML (0.00-0.045)
[2019-01-21 19:49] LABS: Apearance,Urine CLEAR (Clear); Bilirubin,Urine Negative (Negative); Blood, Urine Negative (Negative); Glucose,Urine (UA) 50 mg/dL (Negative); Hyaline Casts,Urine 1 /LPF (0-3); Ketones,Urine Negative (Negative); Mucus,Urine Occasional /LPF (Occasional); Nitrite,Urine Negative (Negative); Protein,Urine Negative; Urine Color Yellow (Yellow); Urine Specific Gravity 1.014 (1.001-1.035); Urine Urobilinogen < 2.0 EU/DL (0.2-1.0); WBC,Urine <1 /HPF (0-6)
[2019-01-21] MEDS ORDERED: LEVOFLOXACIN INJ 750 MG in PREMIX 1 EACH IV STA (20:13)
[2019-01-21 23:13] LABS: Barbiturates Screen,Urine Negative (Negative); Benzodiazepines Screen,Urine Negative (Negative); Cannabinoid Screen,Urine Negative (Negative); Opiate Screen,Urine Positive (Negative); Phencyclidine Screen,Urine Negative (Negative)
[2019-01-21] MEDS ORDERED: guaiFENesin 200 MG/10 ML UDCUP PO PRN (23:38)
[2019-01-21] MEDS ORDERED: ONDANSETRON 4 MG/2 ML VIAL IV PRN (23:38)
[2019-01-21] MEDS ORDERED: traZODone 50 MG TABLET PO PRN (23:38)
[2019-01-21] MEDS ORDERED: GLUCAGON 1 MG VIAL IM PRN (23:38)
[2019-01-21] MEDS ORDERED: METHOCARBAMOL 500 MG TABLET PO PRN (23:38)
[2019-01-21] MEDS ORDERED: DEXTROSE 50% 25 GM/50 ML VIAL IV PRN (23:38)
[2019-01-21] MEDS ORDERED: ACETAMINOPHEN 325 MG TABLET PO PRN (23:38)
[2019-01-21] MEDS ORDERED: ALBUTEROL 2.5 MG/3 ML NEB RESP TX PRN (23:38)
[2019-01-22] MEDS: ALBUTEROL/IPRATROPIUM 3 ML NEB RESP TX SCH ×4 (00:30→19:45)
[2019-01-22] MEDS: GABAPENTIN 300 MG CAPSULE PO SCH ×2 (01:12→20:26)
[2019-01-22] MEDS: CARVEDILOL 3.125 MG TABLET PO SCH ×3 (01:12→17:04)
[2019-01-22] MEDS: ATORVASTATIN 40 MG TABLET PO SCH ×2 (01:12→20:27)
[2019-01-22] MEDS: INSULIN REGULAR 100 UNIT/ML SUBCUT SCH ×5 (01:12→21:00)
[2019-01-22] MEDS: MONTELUKAST 10 MG TABLET PO SCH ×2 (01:12→20:26)
[2019-01-22 01:33] LABS: Basophils # 0.1 10*3/uL (0.0-0.2); Basophils % 0.3 % (0.0-0.8); Eosinophils # 0.6 10*3/uL (0.0-0.87); Eosinophils % 3.5 % (0.00-10.9); Hematocrit 26.8 VOL% (42.0-52.0); Hemoglobin 8.7 GM/DL (14.0-18.0); Immature Granulocytes % 1.4 %; Immature Granulocytes Absolute 0.25 #; Lymphocytes # 2.5 10*3/uL (1.4-4.0); Mean Corpuscular HGB Conc 32.5 GM/DL (32-36); Mean Corpuscular Volume 97.1 FL (87-102); Mean Platelet Volume 10.5 FL (9.6-12.0); Monocytes % 6.5 % (1.7-12.7); Neutrophils % 74.3 % (38.7-73.9); Platelet Count 316 T/CUMM (130-400); Red Blood Count 2.76 MC/CUMM (3.8-5.5); Red Cell Distribution Width 11.9 % (9.3-17.3); White Blood Count 17.6 T/CUMM (4-12)
[2019-01-22 01:41] LABS: Calcium 8.5 MG/DL (8.5-10.1)
[2019-01-22] MEDS: GABAPENTIN 600 MG TABLET PO SCH ×4 (01:42→17:04)
[2019-01-22] MEDS: ENOXAPARIN 40 MG/0.4 ML SYRINGE SUBCUT SCH (01:43)
[2019-01-22] MEDS: AZTREONAM 2,000 MG in SODIUM CHLORIDE 0.9% 100 ML IV SCH ×2 (01:43→05:29)
[2019-01-22] MEDS: oxyCODONE/ACETAMINOPHEN 5-325 MG TABLET PO PRN ×2 (01:50→20:32)
[2019-01-22] MEDS ORDERED: VANCOMYCIN INJ 1,500 MG in SODIUM CHLORIDE 0.9% 500 ML IV SCH (02:00)
[2019-01-22] MEDS: ASPIRIN EC 325 MG TABLET PO SCH (09:40)
[2019-01-22] MEDS: MELOXICAM 7.5 MG TABLET PO SCH (09:40)
[2019-01-22] MEDS: LORATADINE 10 MG TABLET PO SCH (09:40)
[2019-01-22] MEDS: TAMSULOSIN 0.4 MG CAPSULE PO SCH (09:40)
[2019-01-22] MEDS: predniSONE 20 MG TABLET PO SCH ×3 (09:41→17:02)
[2019-01-22] MEDS: CLOPIDOGREL 75 MG TABLET PO SCH (09:41)
[2019-01-22] MEDS: MOMETASONE 50 MCG NASAL SPRAY 17 GM BOTTLE BOTH NARES SCH (10:09)
[2019-01-22] MEDS: BISACODYL 5 MG TABLET PO PRN (11:42)
[2019-01-22] MEDS ORDERED: LEVOFLOXACIN INJ 750 MG in PREMIX 1 EACH IV SCH (20:00)
[2019-01-23] MEDS: GABAPENTIN 600 MG TABLET PO SCH ×5 (00:19→17:58)
[2019-01-23] MEDS: ENOXAPARIN 40 MG/0.4 ML SYRINGE SUBCUT SCH (00:19)
[2019-01-23] MEDS: ALBUTEROL/IPRATROPIUM 3 ML NEB RESP TX SCH ×4 (02:05→23:39)
[2019-01-23 05:19] LABS: Basophils % 0.2 % (0.0-0.8); Eosinophils % 0.1 % (0.00-10.9); Hematocrit 24.5 VOL% (42.0-52.0); Hemoglobin 7.9 GM/DL (14.0-18.0); Immature Granulocytes % 1.4 %; Immature Granulocytes Absolute 0.25 #; Lymphocytes # 1.1 10*3/uL (1.4-4.0); Lymphocytes % 5.7 % (21.2-54.2); Mean Corpuscular HGB Conc 32.2 GM/DL (32-36); Mean Corpuscular Volume 96.8 FL (87-102); Mean Platelet Volume 10.4 FL (9.6-12.0); Monocytes % 3.6 % (1.7-12.7); Platelet Count 331 T/CUMM (130-400); Red Blood Count 2.53 MC/CUMM (3.8-5.5); Red Cell Distribution Width 11.8 % (9.3-17.3); White Blood Count 18.4 T/CUMM (4-12)
[2019-01-23 05:37] LABS: Calcium 8.5 MG/DL (8.5-10.1); Osmolality,Calculated 288.8 MOS/KG (273-304)
[2019-01-23] MEDS ORDERED: SODIUM POLYSTYRENE SULFATE 15 GM/60 ML BOTTLE PO STA (07:32)
[2019-01-23] MEDS: MOMETASONE 50 MCG NASAL SPRAY 17 GM BOTTLE BOTH NARES SCH (09:05)
[2019-01-23] MEDS: INSULIN REGULAR 100 UNIT/ML SUBCUT SCH ×4 (09:05→20:53)
[2019-01-23] MEDS: LEVOFLOXACIN 750 MG TABLET PO SCH (09:06)
[2019-01-23] MEDS: CARVEDILOL 3.125 MG TABLET PO SCH ×2 (09:06→16:53)
[2019-01-23] MEDS: TAMSULOSIN 0.4 MG CAPSULE PO SCH (09:06)
[2019-01-23] MEDS: predniSONE 20 MG TABLET PO SCH ×3 (09:06→16:53)
[2019-01-23] MEDS: LORATADINE 10 MG TABLET PO SCH (09:06)
[2019-01-23] MEDS: ASPIRIN EC 325 MG TABLET PO SCH (09:06)
[2019-01-23] MEDS: CLOPIDOGREL 75 MG TABLET PO SCH (09:06)
[2019-01-23] MEDS: MELOXICAM 7.5 MG TABLET PO SCH (09:06)
[2019-01-23] MEDS: metFORMIN 500 MG TABLET PO SCH (11:59)
[2019-01-23] MEDS ORDERED: ALBUTEROL 2.5 MG/3 ML NEB RESP TX PRN (13:00)
[2019-01-23] MEDS: MONTELUKAST 10 MG TABLET PO SCH (20:31)
[2019-01-23] MEDS: oxyCODONE/ACETAMINOPHEN 5-325 MG TABLET PO PRN (20:31)
[2019-01-23] MEDS: GABAPENTIN 300 MG CAPSULE PO SCH (20:31)
[2019-01-23] MEDS: ATORVASTATIN 40 MG TABLET PO SCH (20:32)
[2019-01-24] MEDS: ALBUTEROL/IPRATROPIUM 3 ML NEB RESP TX SCH ×4 (00:31→20:06)
[2019-01-24] MEDS: GABAPENTIN 600 MG TABLET PO SCH ×3 (00:47→13:01)
[2019-01-24] MEDS: ENOXAPARIN 40 MG/0.4 ML SYRINGE SUBCUT SCH (00:47)
[2019-01-24 04:55] LABS: Basophils # 0.1 10*3/uL (0.0-0.2); Basophils % 0.2 % (0.0-0.8); Hematocrit 24.1 VOL% (42.0-52.0); Hemoglobin 7.7 GM/DL (14.0-18.0); Immature Granulocytes % 1.4 %; Immature Granulocytes Absolute 0.32 #; Lymphocytes # 1.1 10*3/uL (1.4-4.0); Mean Corpuscular Volume 98.4 FL (87-102); Mean Platelet Volume 10.7 FL (9.6-12.0); Monocytes % 3.7 % (1.7-12.7); Neutrophils % 89.7 % (38.7-73.9); Platelet Count 371 T/CUMM (130-400); Red Blood Count 2.45 MC/CUMM (3.8-5.5)
[2019-01-24 05:35] LABS: Osmolality,Calculated 299.7 MOS/KG (273-304)
[2019-01-24] MEDS: oxyCODONE/ACETAMINOPHEN 5-325 MG TABLET PO PRN ×3 (05:43→20:55)
[2019-01-24 06:15] LABS: Lymphocytes 6 % (20-55); Segmented Neutrophils 90 % (50-85); Total Cells Counted 100
[2019-01-24 06:16] LABS: Platelet Estimate Normal; Polychromasia Few
[2019-01-24] MEDS: ASPIRIN EC 325 MG TABLET PO SCH (09:08)
[2019-01-24] MEDS: predniSONE 20 MG TABLET PO SCH (09:08)
[2019-01-24] MEDS: TAMSULOSIN 0.4 MG CAPSULE PO SCH (09:08)
[2019-01-24] MEDS: CLOPIDOGREL 75 MG TABLET PO SCH (09:08)
[2019-01-24] MEDS: metFORMIN 500 MG TABLET PO SCH (09:08)
[2019-01-24] MEDS: CARVEDILOL 3.125 MG TABLET PO SCH ×2 (09:08→17:09)
[2019-01-24] MEDS: LORATADINE 10 MG TABLET PO SCH (09:09)
[2019-01-24] MEDS: MELOXICAM 7.5 MG TABLET PO SCH (09:09)
[2019-01-24] MEDS: INSULIN REGULAR 100 UNIT/ML SUBCUT SCH ×3 (10:14→21:52)
[2019-01-24] MEDS: LEVOFLOXACIN 750 MG TABLET PO SCH (10:14)
[2019-01-24] MEDS: MOMETASONE 50 MCG NASAL SPRAY 17 GM BOTTLE BOTH NARES SCH (11:48)
[2019-01-24] MEDS: MONTELUKAST 10 MG TABLET PO SCH (20:52)
[2019-01-24] MEDS: ATORVASTATIN 40 MG TABLET PO SCH (20:56)
[2019-01-24] MEDS: GABAPENTIN 300 MG CAPSULE PO SCH (20:56)
[2019-01-25] MEDS: ENOXAPARIN 40 MG/0.4 ML SYRINGE SUBCUT SCH (00:05)
[2019-01-25] MEDS: ALBUTEROL/IPRATROPIUM 3 ML NEB RESP TX SCH ×3 (02:12→13:30)
[2019-01-25] MEDS: GABAPENTIN 600 MG TABLET PO SCH ×4 (03:21→12:15)
[2019-01-25] MEDS: oxyCODONE/ACETAMINOPHEN 5-325 MG TABLET PO PRN ×2 (04:25→09:46)
[2019-01-25] MEDS: MELOXICAM 7.5 MG TABLET PO SCH (09:42)
[2019-01-25] MEDS: BISACODYL 5 MG TABLET PO PRN (09:45)
[2019-01-25] MEDS: LEVOFLOXACIN 750 MG TABLET PO SCH (09:45)
[2019-01-25] MEDS: metFORMIN 500 MG TABLET PO SCH (09:45)
[2019-01-25] MEDS: CLOPIDOGREL 75 MG TABLET PO SCH (09:45)
[2019-01-25] MEDS: ASPIRIN EC 325 MG TABLET PO SCH (09:45)
[2019-01-25] MEDS: CARVEDILOL 3.125 MG TABLET PO SCH (09:45)
[2019-01-25] MEDS: INSULIN REGULAR 100 UNIT/ML SUBCUT SCH ×2 (09:46→12:15)
[2019-01-25] MEDS: LORATADINE 10 MG TABLET PO SCH (09:46)
[2019-01-25] MEDS: TAMSULOSIN 0.4 MG CAPSULE PO SCH (09:46)
[2019-01-25] MEDS: MOMETASONE 50 MCG NASAL SPRAY 17 GM BOTTLE BOTH NARES SCH (12:15)
[2019-01-25 12:17] VITALS: BP 153/81
[2019-01-25] MEDS ORDERED: FUROSEMIDE 40 MG/4 ML VIAL IV ONE (14:11)
[2019-01-25] MEDS ORDERED: predniSONE 20 MG TABLET PO SCH (14:30)
== END 2019-01-25 15:45 | disposition home health service (06) | DRG 187 ==
LOC: N.ED 17:37 → N.EDINP 21:58 → SUATTDRO 21:58 → N.TELES 22:50
PROVIDERS: ADMIT Hospitalist; ATTEND Internal Medicine Geriatric Medicine

== ENCOUNTER 2019-02-11 02:42 | Inpatient (IN) ==
[2019-02-11] MEDS ORDERED: ONDANSETRON 4 MG/2 ML VIAL IV STA (02:49)
[2019-02-11] MEDS ORDERED: MORPHINE 4 MG/1 ML VIAL IV STA (02:49)
[2019-02-11 02:58] LABS: Basophils % 0.3 % (0.0-0.8); Eosinophils # 0.1 10*3/uL (0.0-0.87); Eosinophils % 0.4 % (0.00-10.9); Hematocrit 31.6 VOL% (42.0-52.0); Immature Granulocytes % 0.6 %; Immature Granulocytes Absolute 0.07 #; Lymphocytes # 1.8 10*3/uL (1.4-4.0); Mean Corpuscular HGB Conc 31.6 GM/DL (32-36); Mean Corpuscular Volume 99.1 FL (87-102); Mean Platelet Volume 10.9 FL (9.6-12.0); Monocytes % 6.7 % (1.7-12.7); Platelet Count 236 T/CUMM (130-400); Red Blood Count 3.19 MC/CUMM (3.8-5.5); White Blood Count 11.8 T/CUMM (4-12)
[2019-02-11 03:27] LABS: Alanine Aminotransferase 15 U/L (16-61); Albumin 3.2 G/DL (3.4-5.0); Alkaline Phosphatase 170 U/L (45-117); Amylase 49 U/L (25-115); Aspartate Amino Transferase 5 U/L (0-37); Bilirubin,Total < 0.39 MG/DL (0.2-1.0); Blood Urea Nitrogen 28 MG/DL (7-18); Calcium 8.4 MG/DL (8.5-10.1); Glucose 329 MG/DL (74-106); Osmolality,Calculated 295.5 MOS/KG (273-304); Total Protein 6.8 G/DL (6.4-8.3); Troponin I < 0.015 NG/ML (0.00-0.045)
[2019-02-11] MEDS ORDERED: INSULIN REGULAR 100 UNIT/ML SUBCUT STA (03:28)
[2019-02-11 03:29] LABS: Apearance,Urine CLEAR (Clear); Bilirubin,Urine Negative (Negative); Blood, Urine Negative (Negative); Glucose,Urine (UA) >=500 mg/dL (Negative); Hyaline Casts,Urine 3 /LPF (0-3); Ketones,Urine Negative (Negative); Mucus,Urine Occasional /LPF (Occasional); Nitrite,Urine Negative (Negative); Protein,Urine Negative; RBC,Urine 1 /HPF (0-4); Urine Color Yellow (Yellow); Urine Specific Gravity 1.027 (1.001-1.035); Urine Urobilinogen < 2.0 EU/DL (0.2-1.0); WBC,Urine <1 /HPF (0-6)
[2019-02-11 04:10] LABS: Barbiturates Screen,Urine Negative (Negative); Benzodiazepines Screen,Urine Negative (Negative); Cannabinoid Screen,Urine Negative (Negative); Opiate Screen,Urine Negative (Negative); Phencyclidine Screen,Urine Negative (Negative)
[2019-02-11] MEDS ORDERED: GLUCAGON 1 MG VIAL IM PRN (04:38)
[2019-02-11] MEDS ORDERED: DEXTROSE 50% 25 GM/50 ML VIAL IV PRN (04:38)
[2019-02-11] MEDS ORDERED: ACETAMINOPHEN 325 MG TABLET PO PRN (04:38)
[2019-02-11] MEDS ORDERED: MORPHINE 4 MG/1 ML VIAL IV PRN (04:38)
[2019-02-11] MEDS ORDERED: ONDANSETRON 4 MG/2 ML VIAL IV PRN (04:38)
[2019-02-11 06:05] LABS: Troponin I < 0.015 NG/ML (0.00-0.045)
[2019-02-11] MEDS: INSULIN REGULAR 100 UNIT/ML SUBCUT SCH ×3 (07:14→17:45)
[2019-02-11] MEDS: SODIUM CHLORIDE 0.9% 1,000 ML IV SCH (07:15)
[2019-02-11] MEDS: PANTOPRAZOLE 40 MG TABLET PO SCH (08:46)
[2019-02-11] MEDS ORDERED: ALBUTEROL 2.5 MG/3 ML NEB RESP TX PRN (11:00)
[2019-02-11] MEDS: predniSONE 20 MG TABLET PO SCH ×2 (14:28→20:42)
[2019-02-11] MEDS: METHOCARBAMOL 500 MG TABLET PO PRN (14:31)
[2019-02-11] MEDS: CARVEDILOL 3.125 MG TABLET PO SCH (20:41)
[2019-02-11] MEDS: GABAPENTIN 300 MG CAPSULE PO SCH (20:42)
[2019-02-12] MEDS: INSULIN REGULAR 100 UNIT/ML SUBCUT SCH ×4 (00:57→18:35)
[2019-02-12] MEDS: SODIUM CHLORIDE 0.9% 1,000 ML IV SCH (03:24)
[2019-02-12 04:58] LABS: Basophils % 0.1 % (0.0-0.8); Hematocrit 32.9 VOL% (42.0-52.0); Hemoglobin 10.4 GM/DL (14.0-18.0); Immature Granulocytes % 0.6 %; Immature Granulocytes Absolute 0.06 #; Lymphocytes # 0.9 10*3/uL (1.4-4.0); Lymphocytes % 8.7 % (21.2-54.2); Mean Corpuscular HGB Conc 31.6 GM/DL (32-36); Mean Corpuscular Volume 97.9 FL (87-102); Mean Platelet Volume 11.4 FL (9.6-12.0); Monocytes % 2.4 % (1.7-12.7); Neutrophils % 88.2 % (38.7-73.9); Platelet Count 233 T/CUMM (130-400); Red Blood Count 3.36 MC/CUMM (3.8-5.5); Red Cell Distribution Width 12.9 % (9.3-17.3)
[2019-02-12 05:24] LABS: Calcium 8.4 MG/DL (8.5-10.1); Total Protein 6.8 G/DL (6.4-8.3)
[2019-02-12] MEDS: metFORMIN 500 MG TABLET PO SCH (08:14)
[2019-02-12] MEDS: PANTOPRAZOLE 40 MG TABLET PO SCH (08:14)
[2019-02-12] MEDS: CARVEDILOL 3.125 MG TABLET PO SCH ×2 (08:15→21:07)
[2019-02-12] MEDS: predniSONE 20 MG TABLET PO SCH ×3 (08:15→21:07)
[2019-02-12] MEDS: LORATADINE 10 MG TABLET PO SCH (08:15)
[2019-02-12] MEDS: CLOPIDOGREL 75 MG TABLET PO SCH (08:15)
[2019-02-12] MEDS: METHOCARBAMOL 500 MG TABLET PO PRN (21:07)
[2019-02-12] MEDS: GABAPENTIN 300 MG CAPSULE PO SCH (21:07)
[2019-02-13] MEDS: INSULIN REGULAR 100 UNIT/ML SUBCUT SCH ×3 (00:19→13:15)
[2019-02-13] MEDS: PANTOPRAZOLE 40 MG TABLET PO SCH (08:55)
[2019-02-13] MEDS: predniSONE 20 MG TABLET PO SCH (08:55)
[2019-02-13] MEDS: metFORMIN 500 MG TABLET PO SCH (08:55)
[2019-02-13] MEDS: CLOPIDOGREL 75 MG TABLET PO SCH (08:55)
[2019-02-13] MEDS: CARVEDILOL 3.125 MG TABLET PO SCH (08:55)
[2019-02-13] MEDS: LORATADINE 10 MG TABLET PO SCH (08:55)
[2019-02-13] MEDS ORDERED: RIVAROXABAN 10 MG TABLET PO ONE (10:18)
[2019-02-13 12:24] VITALS: BP 164/89
== END 2019-02-13 13:14 | disposition home or self-care (01) | DRG 184 ==
LOC: EDBD → EDUNIT# → N.ED 02:42 → N.EDINP 04:19 → N.TELES 04:52
PROVIDERS: ADMIT Surgery; ATTEND Surgery

== ENCOUNTER 2019-05-21 10:49 | Inpatient (IN) ==
[2019-05-21] MEDS ORDERED: ALBUTEROL/IPRATROPIUM 3 ML NEB RESP TX STA (11:36)
[2019-05-21] MEDS ORDERED: ASPIRIN 325 MG TABLET PO STA ×2 (11:36→12:57)
[2019-05-21 12:06] LABS: Basophils # 0.1 10*3/uL (0.0-0.2); Basophils % 0.6 % (0.0-0.8); Eosinophils # 0.3 10*3/uL (0.0-0.87); Eosinophils % 3.6 % (0.00-10.9); Hematocrit 38.8 VOL% (42.0-52.0); Hemoglobin 12.9 GM/DL (14.0-18.0); Immature Granulocytes % 0.4 %; Immature Granulocytes Absolute 0.03 #; Lymphocytes % 25.9 % (21.2-54.2); Mean Corpuscular HGB Conc 33.2 GM/DL (32-36); Mean Corpuscular Volume 90.7 FL (87-102); Mean Platelet Volume 10.2 FL (9.6-12.0); Monocytes % 6.9 % (1.7-12.7); Neutrophils % 62.6 % (38.7-73.9); Platelet Count 264 T/CUMM (130-400); Red Blood Count 4.28 MC/CUMM (3.8-5.5); Red Cell Distribution Width 12.2 % (9.3-17.3); White Blood Count 7.9 T/CUMM (4-12)
[2019-05-21 12:20] LABS: PT Patient Result 10.9 SECS (9.6-12.2)
[2019-05-21 12:23] LABS: Albumin 3.5 G/DL (3.4-5.0); Bilirubin,Total 0.9 MG/DL (0.2-1.0); Calcium 8.5 MG/DL (8.5-10.1); Osmolality,Calculated 274.8 MOS/KG (273-304); Total Protein 7.2 G/DL (6.4-8.3)
[2019-05-21 12:25] LABS: CKMB % 1.7 %; Troponin I 0.018 NG/ML (0.00-0.045)
[2019-05-21] MEDS ORDERED: RIVAROXABAN 15 MG TABLET PO STA (12:57)
[2019-05-21] MEDS ORDERED: ACETAMINOPHEN 325 MG TABLET PO PRN (13:32)
[2019-05-21] MEDS ORDERED: hydrALAZINE 20 MG/1 ML VIAL IV PRN (13:49)
[2019-05-21] MEDS ORDERED: GLUCAGON 1 MG VIAL IM PRN (13:50)
[2019-05-21] MEDS ORDERED: DEXTROSE 50% 25 GM/50 ML VIAL IV PRN (13:50)
[2019-05-21 13:55] LABS: Risk Ratio 4.97; VLDL CHOLESTEROL 18.6 MG/DL
[2019-05-21] MEDS: INSULIN REGULAR 100 UNIT/ML SUBCUT SCH ×2 (17:11→20:47)
[2019-05-21] MEDS: MORPHINE 4 MG/1 ML VIAL IV PRN (21:58)
[2019-05-22 01:54] LABS: Basophils # 0.1 10*3/uL (0.0-0.2); Basophils % 0.7 % (0.0-0.8); Eosinophils # 0.7 10*3/uL (0.0-0.87); Eosinophils % 10.1 % (0.00-10.9); Hematocrit 38.5 VOL% (42.0-52.0); Hemoglobin 12.6 GM/DL (14.0-18.0); Immature Granulocytes % 0.3 %; Immature Granulocytes Absolute 0.02 #; Lymphocytes # 2.6 10*3/uL (1.4-4.0); Lymphocytes % 36.6 % (21.2-54.2); Mean Corpuscular HGB Conc 32.7 GM/DL (32-36); Mean Corpuscular Volume 91.7 FL (87-102); Mean Platelet Volume 10.1 FL (9.6-12.0); Monocytes % 8.6 % (1.7-12.7); Neutrophils % 43.7 % (38.7-73.9); Platelet Count 242 T/CUMM (130-400); Red Cell Distribution Width 12.3 % (9.3-17.3); White Blood Count 7.2 T/CUMM (4-12)
[2019-05-22 02:25] LABS: Calcium 8.2 MG/DL (8.5-10.1); Osmolality,Calculated 283.3 MOS/KG (273-304)
[2019-05-22 04:16] LABS: Apearance,Urine CLEAR (Clear); Bilirubin,Urine Negative (Negative); Blood, Urine Negative (Negative); Glucose,Urine (UA) Negative (Negative); Ketones,Urine Negative (Negative); Mucus,Urine Occasional /LPF (Occasional); Nitrite,Urine Negative (Negative); Protein,Urine Negative; RBC,Urine 4 /HPF (0-4); Squamous Epithelial Cell,Urine Occasional /HPF (0-10); Urine Color Yellow (Yellow); Urine Specific Gravity 1.026 (1.001-1.035); WBC,Urine <1 /HPF (0-6)
[2019-05-22 04:22] LABS: Barbiturates Screen,Urine Negative (Negative); Benzodiazepines Screen,Urine Negative (Negative); Cannabinoid Screen,Urine Negative (Negative); Opiate Screen,Urine Negative (Negative); Phencyclidine Screen,Urine Negative (Negative)
[2019-05-22] MEDS ORDERED: ALBUTEROL 2.5 MG/3 ML NEB RESP TX PRN (07:02)
[2019-05-22] MEDS: INSULIN REGULAR 100 UNIT/ML SUBCUT SCH ×4 (07:48→21:02)
[2019-05-22] MEDS: PANTOPRAZOLE 40 MG TABLET PO SCH (09:07)
[2019-05-22] MEDS: CLOPIDOGREL 75 MG TABLET PO SCH (09:07)
[2019-05-22] MEDS: INSULIN GLARGINE 100 UNIT/ML SUBCUT SCH ×2 (09:07→21:02)
[2019-05-22] MEDS: TAMSULOSIN 0.4 MG CAPSULE PO SCH (21:03)
[2019-05-23] MEDS: MORPHINE 4 MG/1 ML VIAL IV PRN ×2 (00:12→03:34)
[2019-05-23] MEDS ORDERED: MELOXICAM 7.5 MG TABLET PO SCH (09:00)
[2019-05-23] MEDS: CLOPIDOGREL 75 MG TABLET PO SCH (09:51)
[2019-05-23] MEDS: traMADol 50 MG TABLET PO PRN ×2 (09:51→21:10)
[2019-05-23] MEDS: PANTOPRAZOLE 40 MG TABLET PO SCH (09:51)
[2019-05-23] MEDS: buPROPion XL 150 MG TABLET PO SCH (09:51)
[2019-05-23] MEDS: INSULIN REGULAR 100 UNIT/ML SUBCUT SCH ×4 (09:52→21:12)
[2019-05-23] MEDS: INSULIN GLARGINE 100 UNIT/ML SUBCUT SCH ×2 (09:53→21:10)
[2019-05-23] MEDS ORDERED: lisinopriL 10 MG TABLET PO SCH (13:30)
[2019-05-23] MEDS: carvediloL 6.25 MG TABLET PO SCH ×2 (13:58→21:11)
[2019-05-23] MEDS: FUROSEMIDE 40 MG/4 ML VIAL IV SCH ×2 (13:58→17:12)
[2019-05-23] MEDS: TAMSULOSIN 0.4 MG CAPSULE PO SCH (21:11)
[2019-05-23] MEDS: LOSARTAN 25 MG TABLET PO SCH (21:11)
[2019-05-23] MEDS: ATORVASTATIN 40 MG TABLET PO SCH (21:11)
[2019-05-24] MEDS: MORPHINE 4 MG/1 ML VIAL IV PRN ×2 (03:38→17:24)
[2019-05-24 04:48] LABS: Basophils # 0.1 10*3/uL (0.0-0.2); Basophils % 0.7 % (0.0-0.8); Eosinophils # 0.6 10*3/uL (0.0-0.87); Eosinophils % 6.4 % (0.00-10.9); Hematocrit 43.6 VOL% (42.0-52.0); Hemoglobin 13.9 GM/DL (14.0-18.0); Immature Granulocytes % 0.1 %; Immature Granulocytes Absolute 0.01 #; Lymphocytes # 2.3 10*3/uL (1.4-4.0); Lymphocytes % 25.6 % (21.2-54.2); Mean Corpuscular HGB Conc 31.9 GM/DL (32-36); Mean Platelet Volume 10.8 FL (9.6-12.0); Monocytes % 7.5 % (1.7-12.7); Neutrophils % 59.7 % (38.7-73.9); Platelet Count 273 T/CUMM (130-400); Red Blood Count 4.69 MC/CUMM (3.8-5.5); Red Cell Distribution Width 12.4 % (9.3-17.3)
[2019-05-24 05:13] LABS: Calcium 8.8 MG/DL (8.5-10.1); Osmolality,Calculated 287.7 MOS/KG (273-304)
[2019-05-24] MEDS: CLOPIDOGREL 75 MG TABLET PO SCH (10:03)
[2019-05-24] MEDS: LOSARTAN 25 MG TABLET PO SCH (10:04)
[2019-05-24] MEDS: PANTOPRAZOLE 40 MG TABLET PO SCH (10:04)
[2019-05-24] MEDS: buPROPion XL 150 MG TABLET PO SCH (10:04)
[2019-05-24] MEDS: carvediloL 6.25 MG TABLET PO SCH (10:05)
[2019-05-24] MEDS: FUROSEMIDE 40 MG/4 ML VIAL IV SCH ×2 (10:05→17:20)
[2019-05-24] MEDS: ONDANSETRON 4 MG/2 ML VIAL IV PRN (10:19)
[2019-05-24] MEDS: INSULIN GLARGINE 100 UNIT/ML SUBCUT SCH ×2 (10:22→22:07)
[2019-05-24] MEDS: INSULIN REGULAR 100 UNIT/ML SUBCUT SCH ×4 (10:22→22:07)
[2019-05-24] MEDS: TAMSULOSIN 0.4 MG CAPSULE PO SCH (22:03)
[2019-05-24] MEDS: METOPROLOL SUCCINATE XL 25 MG TABLET PO SCH (22:03)
[2019-05-24] MEDS: ATORVASTATIN 40 MG TABLET PO SCH (22:03)
[2019-05-25] MEDS: MORPHINE 4 MG/1 ML VIAL IV PRN ×2 (02:24→09:29)
[2019-05-25 06:34] LABS: Basophils # 0.1 10*3/uL (0.0-0.2); Basophils % 0.6 % (0.0-0.8); Eosinophils # 0.4 10*3/uL (0.0-0.87); Eosinophils % 4.9 % (0.00-10.9); Hematocrit 41.5 VOL% (42.0-52.0); Hemoglobin 13.3 GM/DL (14.0-18.0); Immature Granulocytes % 0.2 %; Immature Granulocytes Absolute 0.02 #; Lymphocytes # 1.9 10*3/uL (1.4-4.0); Lymphocytes % 21.6 % (21.2-54.2); Mean Corpuscular Volume 92.4 FL (87-102); Mean Platelet Volume 10.8 FL (9.6-12.0); Monocytes % 8.1 % (1.7-12.7); Neutrophils % 64.6 % (38.7-73.9); Platelet Count 265 T/CUMM (130-400); Red Blood Count 4.49 MC/CUMM (3.8-5.5); Red Cell Distribution Width 12.3 % (9.3-17.3); White Blood Count 8.9 T/CUMM (4-12)
[2019-05-25 06:47] LABS: Calcium 8.3 MG/DL (8.5-10.1)
[2019-05-25] MEDS: INSULIN REGULAR 100 UNIT/ML SUBCUT SCH ×4 (08:40→20:40)
[2019-05-25] MEDS: ONDANSETRON 4 MG/2 ML VIAL IV PRN (09:28)
[2019-05-25] MEDS: CLOPIDOGREL 75 MG TABLET PO SCH (09:30)
[2019-05-25] MEDS: buPROPion XL 150 MG TABLET PO SCH (09:30)
[2019-05-25] MEDS: METOPROLOL SUCCINATE XL 25 MG TABLET PO SCH ×2 (09:30→20:19)
[2019-05-25] MEDS: PANTOPRAZOLE 40 MG TABLET PO SCH (09:30)
[2019-05-25] MEDS: INSULIN GLARGINE 100 UNIT/ML SUBCUT SCH ×2 (09:30→20:41)
[2019-05-25] MEDS ORDERED: FUROSEMIDE 40 MG/4 ML VIAL IV ONE (12:27)
[2019-05-25] MEDS: ISOSORBIDE DINITRATE 10 MG TABLET PO SCH ×2 (16:06→20:19)
[2019-05-25] MEDS: hydrALAZINE 10 MG TABLET PO SCH ×2 (16:06→20:19)
[2019-05-25] MEDS: ATORVASTATIN 40 MG TABLET PO SCH (20:19)
[2019-05-25] MEDS: TAMSULOSIN 0.4 MG CAPSULE PO SCH (20:19)
[2019-05-26 05:22] LABS: Calcium 7.9 MG/DL (8.5-10.1); Osmolality,Calculated 289.7 MOS/KG (273-304)
[2019-05-26] MEDS: INSULIN REGULAR 100 UNIT/ML SUBCUT SCH ×3 (07:51→15:34)
[2019-05-26] MEDS: INSULIN GLARGINE 100 UNIT/ML SUBCUT SCH (08:50)
[2019-05-26] MEDS: CLOPIDOGREL 75 MG TABLET PO SCH (08:51)
[2019-05-26] MEDS: PANTOPRAZOLE 40 MG TABLET PO SCH (08:51)
[2019-05-26] MEDS: ISOSORBIDE DINITRATE 10 MG TABLET PO SCH ×3 (08:51→15:30)
[2019-05-26] MEDS: buPROPion XL 150 MG TABLET PO SCH (08:51)
[2019-05-26] MEDS: METOPROLOL SUCCINATE XL 25 MG TABLET PO SCH (08:51)
[2019-05-26] MEDS: hydrALAZINE 10 MG TABLET PO SCH ×3 (08:51→15:31)
[2019-05-26] MEDS: traMADol 50 MG TABLET PO PRN (08:54)
[2019-05-26 15:32] VITALS: BP 96/50
== END 2019-05-26 18:30 | DRG 292 ==
LOC: N.ED 10:49 → N.EDINP 13:32 → N.TELEN 14:08
PROVIDERS: ADMIT Internal Medicine; ATTEND Internal Medicine

== ENCOUNTER 2019-08-09 14:40 | Observation (INO) ==
[2019-08-10] MEDS ORDERED: ACETAMINOPHEN 325 MG TABLET PO PRN (00:44)
[2019-08-10] MEDS ORDERED: METHOCARBAMOL 750 MG TABLET PO PRN (00:45)
[2019-08-10] MEDS ORDERED: GLUCAGON 1 MG VIAL IM PRN (00:46)
[2019-08-10] MEDS ORDERED: DEXTROSE 50% 25 GM/50 ML VIAL IV PRN (00:46)
[2019-08-10] MEDS ORDERED: ALBUTEROL 2.5 MG/3 ML NEB RESP TX PRN (01:57)
[2019-08-10] MEDS ORDERED: ENOXAPARIN 40 MG/0.4 ML SYRINGE SUBCUT SCH (08:00)
[2019-08-10] MEDS: ISOSORBIDE DINITRATE 10 MG TABLET PO SCH ×2 (08:39→16:07)
[2019-08-10] MEDS: hydrALAZINE 10 MG TABLET PO SCH ×2 (08:39→16:07)
[2019-08-10] MEDS: INDOMETHACIN 25 MG CAPSULE PO SCH ×2 (08:39→16:07)
[2019-08-10] MEDS: INSULIN REGULAR 100 UNIT/ML SUBCUT SCH ×3 (08:40→16:05)
[2019-08-10] MEDS ORDERED: METOPROLOL SUCCINATE XL 25 MG TABLET PO SCH (09:00)
[2019-08-10] MEDS ORDERED: CLOPIDOGREL 75 MG TABLET PO SCH (09:00)
[2019-08-10] MEDS ORDERED: LEVOFLOXACIN 500 MG TABLET PO SCH (09:00)
[2019-08-10] MEDS ORDERED: PANTOPRAZOLE 40 MG TABLET PO SCH (09:00)
[2019-08-10] MEDS ORDERED: MELOXICAM 7.5 MG TABLET PO SCH (09:00)
[2019-08-10] MEDS ORDERED: LORATADINE 10 MG TABLET PO SCH (09:00)
[2019-08-10] MEDS ORDERED: buPROPion XL 150 MG TABLET PO SCH (09:00)
[2019-08-10 09:33] LABS: Calcium 8.3 MG/DL (8.5-10.1)
[2019-08-10 16:45] VITALS: BP 135/72
[2019-08-10] MEDS ORDERED: TAMSULOSIN 0.4 MG CAPSULE PO SCH (21:00)
[2019-08-10] MEDS ORDERED: ATORVASTATIN 40 MG TABLET PO SCH (21:00)
== END 2019-08-10 18:27 | disposition home or self-care (01) ==
LOC: N.EDINP 14:40 → N.ED 14:40 → N.CC 08-10 01:53 → N.5E 08-10 13:26
PROVIDERS: ADMIT Internal Medicine Geriatric Medicine; ATTEND Internal Medicine Geriatric Medicine

== ENCOUNTER 2019-08-10 19:17 | Observation (INO) ==
[2019-08-10] MEDS ORDERED: ALBUTEROL/IPRATROPIUM 3 ML NEB RESP TX STA (19:36)
[2019-08-10] MEDS ORDERED: methylPREDNISolone SOD SUC 125 MG/2 ML VIAL IV STA (19:36)
[2019-08-10 19:50] LABS: Basophils % 0.5 % (0.0-0.8); Eosinophils # 0.5 10*3/uL (0.0-0.87); Eosinophils % 5.1 % (0.00-10.9); Hematocrit 40.8 VOL% (42.0-52.0); Immature Granulocytes % 0.3 %; Immature Granulocytes Absolute 0.03 #; Lymphocytes # 2.1 10*3/uL (1.4-4.0); Lymphocytes % 23.5 % (21.2-54.2); Mean Corpuscular HGB Conc 31.9 GM/DL (32-36); Mean Corpuscular Volume 96.7 FL (87-102); Mean Platelet Volume 10.8 FL (9.6-12.0); Monocytes % 6.3 % (1.7-12.7); Neutrophils % 64.3 % (38.7-73.9); Platelet Count 219 T/CUMM (130-400); Red Blood Count 4.22 MC/CUMM (3.8-5.5); White Blood Count 8.8 T/CUMM (4-12)
[2019-08-10 20:03] LABS: Barbiturates Screen,Urine Negative (Negative); Benzodiazepines Screen,Urine Negative (Negative); Cannabinoid Screen,Urine Negative (Negative); Opiate Screen,Urine Positive (Negative); Phencyclidine Screen,Urine Negative (Negative)
[2019-08-10 20:09] LABS: Alanine Aminotransferase 19 U/L (16-61); Albumin 3.1 G/DL (3.4-5.0); Alkaline Phosphatase 118 U/L (45-117); Aspartate Amino Transferase 11 U/L (0-37); Bilirubin,Total < 0.39 MG/DL (0.2-1.0); Blood Urea Nitrogen 25 MG/DL (7-18); Calcium 8.2 MG/DL (8.5-10.1); Estimated Glom Filtration Rate 73 ML/MIN; Glucose 292 MG/DL (74-106); Osmolality,Calculated 276.7 MOS/KG (273-304); Total Protein 6.9 G/DL (6.4-8.3)
[2019-08-10 20:11] LABS: Acetaminophen < 2.0 UG/ML (10-30); Salicylate < 2.8 MG/DL (2.8-20)
[2019-08-10] MEDS ORDERED: methylPREDNISolone SOD SUC 125 MG/2 ML VIAL IM STA (20:52)
[2019-08-11] MEDS ORDERED: ONDANSETRON 4 MG/2 ML VIAL IV PRN (01:44)
[2019-08-11] MEDS ORDERED: ACETAMINOPHEN 325 MG TABLET PO PRN (01:44)
[2019-08-11] MEDS ORDERED: diphenhydrAMINE CAP 25 MG CAPSULE PO PRN (01:44)
[2019-08-11] MEDS ORDERED: DIAZEPAM 10 MG/2 ML SYRINGE IV PRN (01:44)
[2019-08-11] MEDS ORDERED: NICOTINE 21 MG/24 HR PATCH TRANSDERM PRN (01:44)
[2019-08-11] MEDS ORDERED: ALBUTEROL/IPRATROPIUM 3 ML NEB RESP TX PRN (01:44)
[2019-08-11] MEDS ORDERED: chlordiazePOXIDE 25 MG CAPSULE PO PRN (01:44)
[2019-08-11] MEDS ORDERED: hydrALAZINE 20 MG/1 ML VIAL IV PRN (01:44)
[2019-08-11] MEDS ORDERED: INDOMETHACIN 25 MG CAPSULE PO PRN (17:03)
[2019-08-11] MEDS ORDERED: SIMETHICONE CHEW 125 MG TABLET PO PRN (17:04)
[2019-08-11] MEDS ORDERED: MAGNESIUM HYDROXIDE SUSP 30 ML UDCUP PO ONE (17:05)
[2019-08-13] MEDS ORDERED: KETOROLAC 30 MG/1 ML VIAL IM ONE (09:44)
[2019-08-13] MEDS ORDERED: METHOCARBAMOL 500 MG TABLET PO PRN (17:17)
[2019-08-13] MEDS: ALUMINUM/MAGNES/SIMETH MAX STR 30 ML UDCUP PO PRN (21:35)
[2019-08-13] MEDS: TAMSULOSIN 0.4 MG CAPSULE PO SCH (21:35)
[2019-08-13] MEDS: carvediloL 3.125 MG TABLET PO SCH (21:36)
[2019-08-14] MEDS ORDERED: DEXTROSE 50% 25 GM/50 ML VIAL IV PRN (08:57)
[2019-08-14] MEDS ORDERED: GLUCAGON 1 MG VIAL IM PRN (08:57)
[2019-08-14] MEDS: carvediloL 3.125 MG TABLET PO SCH ×2 (08:59→20:38)
[2019-08-14] MEDS: CLOPIDOGREL 75 MG TABLET PO SCH (08:59)
[2019-08-14] MEDS: LORATADINE 10 MG TABLET PO SCH (08:59)
[2019-08-14] MEDS: PANTOPRAZOLE 40 MG TABLET PO SCH (08:59)
[2019-08-14] MEDS: ASPIRIN EC 81 MG TABLET PO SCH (08:59)
[2019-08-14] MEDS ORDERED: KETOROLAC 15 MG/1 ML VIAL IV ONE (09:10)
[2019-08-14] MEDS: INSULIN REGULAR 100 UNIT/ML SUBCUT SCH ×3 (13:28→21:59)
[2019-08-14] MEDS: INDOMETHACIN 25 MG CAPSULE PO SCH ×2 (15:52→20:38)
[2019-08-14] MEDS: metFORMIN 500 MG TABLET PO SCH (17:16)
[2019-08-14] MEDS: TAMSULOSIN 0.4 MG CAPSULE PO SCH (20:38)
[2019-08-15] MEDS: INSULIN REGULAR 100 UNIT/ML SUBCUT SCH ×4 (08:43→21:03)
[2019-08-15] MEDS: INDOMETHACIN 25 MG CAPSULE PO SCH ×3 (08:44→21:02)
[2019-08-15] MEDS: carvediloL 3.125 MG TABLET PO SCH ×2 (08:44→21:02)
[2019-08-15] MEDS: PANTOPRAZOLE 40 MG TABLET PO SCH (08:44)
[2019-08-15] MEDS: CLOPIDOGREL 75 MG TABLET PO SCH (08:44)
[2019-08-15] MEDS: LORATADINE 10 MG TABLET PO SCH (08:44)
[2019-08-15] MEDS: ASPIRIN EC 81 MG TABLET PO SCH (08:44)
[2019-08-15] MEDS: metFORMIN 500 MG TABLET PO SCH (16:30)
[2019-08-15] MEDS: TAMSULOSIN 0.4 MG CAPSULE PO SCH (21:02)
[2019-08-16] MEDS: INDOMETHACIN 25 MG CAPSULE PO SCH (08:54)
[2019-08-16] MEDS: carvediloL 3.125 MG TABLET PO SCH ×2 (08:54→21:41)
[2019-08-16] MEDS: INSULIN REGULAR 100 UNIT/ML SUBCUT SCH ×4 (08:54→21:41)
[2019-08-16] MEDS: ASPIRIN EC 81 MG TABLET PO SCH (08:54)
[2019-08-16] MEDS: LORATADINE 10 MG TABLET PO SCH (08:54)
[2019-08-16] MEDS: CLOPIDOGREL 75 MG TABLET PO SCH (08:54)
[2019-08-16] MEDS: PANTOPRAZOLE 40 MG TABLET PO SCH (08:54)
[2019-08-16] MEDS: metFORMIN 500 MG TABLET PO SCH (17:05)
[2019-08-16] MEDS: TAMSULOSIN 0.4 MG CAPSULE PO SCH (21:41)
[2019-08-16] MEDS: ALUMINUM/MAGNES/SIMETH MAX STR 30 ML UDCUP PO PRN (22:43)
[2019-08-17] MEDS: ALUMINUM/MAGNES/SIMETH MAX STR 30 ML UDCUP PO PRN (08:25)
[2019-08-17] MEDS: INSULIN REGULAR 100 UNIT/ML SUBCUT SCH ×2 (08:27→12:32)
[2019-08-17] MEDS: CLOPIDOGREL 75 MG TABLET PO SCH (08:28)
[2019-08-17] MEDS: carvediloL 3.125 MG TABLET PO SCH (08:28)
[2019-08-17] MEDS: LORATADINE 10 MG TABLET PO SCH (08:28)
[2019-08-17] MEDS: ASPIRIN EC 81 MG TABLET PO SCH (08:28)
[2019-08-17] MEDS: PANTOPRAZOLE 40 MG TABLET PO SCH (08:28)
[2019-08-17 11:55] VITALS: BP 163/69
== END 2019-08-17 15:00 | disposition home or self-care (01) ==
LOC: N.ED 19:17 → N.EDINP 19:17 → SUATTDRO 08-11 01:44 → N.5E 08-11 02:19
PROVIDERS: ADMIT Internal Medicine Geriatric Medicine; ATTEND Internal Medicine

== ENCOUNTER 2019-10-20 14:09 | Observation (INO) ==
[2019-10-20] MEDS ORDERED: ONDANSETRON 4 MG/2 ML VIAL IV PRN (14:49)
[2019-10-20] MEDS ORDERED: ENOXAPARIN 100 MG/ML SYRINGE SUBCUT STA (14:49)
[2019-10-20] MEDS ORDERED: ASPIRIN 325 MG TABLET PO STA (14:49)
[2019-10-20] MEDS ORDERED: MORPHINE 4 MG/1 ML VIAL IV PRN (14:49)
[2019-10-20 15:07] LABS: Basophils # 0.1 10*3/uL (0.0-0.2); Basophils % 0.7 % (0.0-0.8); Eosinophils # 0.7 10*3/uL (0.0-0.87); Eosinophils % 8.1 % (0.00-10.9); Immature Granulocytes % 0.3 %; Immature Granulocytes Absolute 0.03 #; Lymphocytes # 2.1 10*3/uL (1.4-4.0); Lymphocytes % 24.7 % (21.2-54.2); Mean Corpuscular HGB Conc 32.5 GM/DL (32-36); Mean Platelet Volume 10.2 FL (9.6-12.0); Monocytes % 7.7 % (1.7-12.7); Neutrophils % 58.5 % (38.7-73.9); Platelet Count 231 T/CUMM (130-400); Red Blood Count 4.21 MC/CUMM (3.8-5.5); Red Cell Distribution Width 12.4 % (9.3-17.3); White Blood Count 8.6 T/CUMM (4-12)
[2019-10-20 15:25] LABS: PT Patient Result 10.4 SECS (9.8-11.9); Partial Thromboplastin Time 28.5 SECS (23.9-33.8)
[2019-10-20 15:30] LABS: Albumin 3.2 G/DL (3.4-5.0); Bilirubin,Total 0.6 MG/DL (0.2-1.0); Calcium 8.4 MG/DL (8.5-10.1); Osmolality,Calculated 275.1 MOS/KG (273-304); Total Protein 6.7 G/DL (6.4-8.3)
[2019-10-20] MEDS ORDERED: ALUMINUM/MAGNES/SIMETH MAX STR 30 ML UDCUP PO PRN (16:49)
[2019-10-20] MEDS ORDERED: SIMETHICONE CHEW 125 MG TABLET PO PRN (16:49)
[2019-10-20] MEDS ORDERED: diphenhydrAMINE CAP 25 MG CAPSULE PO PRN (16:49)
[2019-10-20] MEDS ORDERED: hydrALAZINE 20 MG/1 ML VIAL IV PRN (16:49)
[2019-10-20] MEDS ORDERED: MAGNESIUM SULF RIDER 2 GM in PREMIX 1 EACH IV PRN (16:49)
[2019-10-20] MEDS ORDERED: GLUCAGON 1 MG VIAL IM PRN ×2 (16:49)
[2019-10-20] MEDS ORDERED: DOCUSATE SODIUM 100 MG CAPSULE PO PRN (16:49)
[2019-10-20] MEDS ORDERED: traZODone 50 MG TABLET PO PRN (16:49)
[2019-10-20] MEDS ORDERED: DEXTROSE 50% 25 GM/50 ML VIAL IV PRN (16:49)
[2019-10-20] MEDS ORDERED: NICOTINE 21 MG/24 HR PATCH TRANSDERM PRN (16:49)
[2019-10-20] MEDS ORDERED: guaiFENesin/DM ER 600-30 MG TABLET PO PRN (16:49)
[2019-10-20] MEDS ORDERED: DEXTROSE 10% 250 ML BAG IV PRN (16:49)
[2019-10-20] MEDS ORDERED: ZALEPLON 5 MG CAPSULE PO PRN (16:49)
[2019-10-20] MEDS ORDERED: MAGNESIUM SULF RIDER 4 GM in PREMIX 1 EACH IV PRN (16:49)
[2019-10-20] MEDS ORDERED: ACETAMINOPHEN 325 MG TABLET PO PRN (16:49)
[2019-10-20] MEDS ORDERED: BISACODYL 5 MG TABLET PO PRN (16:49)
[2019-10-20] MEDS ORDERED: LACTULOSE 20 GM/30 ML UDCUP PO PRN (16:49)
[2019-10-20 17:54] LABS: Apearance,Urine CLEAR (Clear); Bilirubin,Urine Negative (Negative); Blood, Urine Negative (Negative); Glucose,Urine (UA) >=500 mg/dL (Negative); Ketones,Urine Negative (Negative); Mucus,Urine Occasional /LPF (Occasional); Nitrite,Urine Negative (Negative); Protein,Urine Negative; RBC,Urine 1 /HPF (0-4); Squamous Epithelial Cell,Urine Occasional /HPF (0-10); Urine Color Yellow (Yellow); Urine Specific Gravity 1.018 (1.001-1.035); Urine Urobilinogen < 2.0 EU/DL (0.2-1.0); WBC,Urine 1 /HPF (0-6)
[2019-10-20 18:27] LABS: Barbiturates Screen,Urine Negative (Negative); Benzodiazepines Screen,Urine Negative (Negative); Cannabinoid Screen,Urine Negative (Negative); Opiate Screen,Urine Positive (Negative); Phencyclidine Screen,Urine Negative (Negative)
[2019-10-20] MEDS ORDERED: TAMSULOSIN 0.4 MG CAPSULE PO SCH (21:00)
[2019-10-20] MEDS ORDERED: CALCIUM CARBONATE CHEW 500 MG TABLET PO PRN (21:30)
[2019-10-20] MEDS ORDERED: METHOCARBAMOL 500 MG TABLET PO PRN (21:30)
[2019-10-20] MEDS: ISOSORBIDE DINITRATE 10 MG TABLET PO SCH (22:00)
[2019-10-20] MEDS: carvediloL 3.125 MG TABLET PO SCH (22:00)
[2019-10-21] MEDS: INSULIN REGULAR 100 UNIT/ML SUBCUT SCH ×4 (01:11→18:52)
[2019-10-21] MEDS: INSULIN GLARGINE 100 UNIT/ML SUBCUT SCH ×2 (01:11→14:44)
[2019-10-21 06:03] LABS: Basophils # 0.1 10*3/uL (0.0-0.2); Basophils % 0.7 % (0.0-0.8); Eosinophils # 0.6 10*3/uL (0.0-0.87); Eosinophils % 8.7 % (0.00-10.9); Hematocrit 39.7 VOL% (42.0-52.0); Hemoglobin 13.1 GM/DL (14.0-18.0); Immature Granulocytes % 0.4 %; Immature Granulocytes Absolute 0.03 #; Lymphocytes # 2.4 10*3/uL (1.4-4.0); Mean Platelet Volume 10.7 FL (9.6-12.0); Monocytes % 6.9 % (1.7-12.7); Neutrophils % 50.3 % (38.7-73.9); Platelet Count 222 T/CUMM (130-400); Red Blood Count 4.27 MC/CUMM (3.8-5.5); Red Cell Distribution Width 12.3 % (9.3-17.3); White Blood Count 7.2 T/CUMM (4-12)
[2019-10-21 06:33] LABS: Albumin 3.2 G/DL (3.4-5.0); Calcium 8.4 MG/DL (8.5-10.1); Osmolality,Calculated 274.1 MOS/KG (273-304); Risk Ratio 5.7; Thyroid Stimulating Hormone 1.8 uIU/ml (0.358-3.74); Total Protein 6.9 G/DL (6.4-8.3); VLDL CHOLESTEROL 36.4 MG/DL
[2019-10-21] MEDS ORDERED: ASPIRIN EC 81 MG TABLET PO SCH (09:00)
[2019-10-21] MEDS ORDERED: buPROPion XL 150 MG TABLET PO SCH (09:00)
[2019-10-21] MEDS ORDERED: LORATADINE 10 MG TABLET PO SCH (09:00)
[2019-10-21] MEDS: FUROSEMIDE 40 MG/4 ML VIAL IV SCH ×2 (09:35→15:42)
[2019-10-21] MEDS: ISOSORBIDE DINITRATE 10 MG TABLET PO SCH (09:36)
[2019-10-21] MEDS: carvediloL 3.125 MG TABLET PO SCH (09:37)
[2019-10-21] MEDS ORDERED: FLUTICASONE 50 MCG NASAL SPRAY 16 GM BOTTLE BOTH NARES SCH (12:30)
[2019-10-21] MEDS ORDERED: GABAPENTIN 100 MG CAPSULE PO SCH (15:00)
[2019-10-21] MEDS ORDERED: RIVAROXABAN 10 MG TABLET PO SCH (16:30)
[2019-10-21 20:14] VITALS: BP 102/75
[2019-10-21] MEDS ORDERED: ACETAMINOPHEN 325 MG TABLET PO SCH (21:00)
[2019-10-22] MEDS ORDERED: ISOSORBIDE MONONITRATE 30 MG TABLET PO SCH (09:00)
== END 2019-10-21 20:50 | disposition home or self-care (01) ==
LOC: EDUNIT# → EDBD → N.ED 14:09 → N.EDINP 14:09 → N.TELES 10-21 00:48
PROVIDERS: ADMIT Family Medicine; ATTEND Family Medicine